=== PATIENT | male | born 1935 ===

== ENCOUNTER 2018-03-31 21:14 | Inpatient (IN) | payer MEDICARE ==
[2018-04-01] MEDS ORDERED: IPRATROPIUM-ALBUTEROL 3 ML NEB INHALATION PRN (01:04)
[2018-04-01 04:03] LABS: Appearance,Urine Clear (Clear); Bilirubin,Urine Negative (Negative); Blood,Urine Small (Negative); Color,Urine Yellow; Glucose,Urine (UA) Negative (Negative); Ketones,Urine Negative (Negative); Leukocyte Esterase,Urine Negative (Negative); Nitrite,Urine Negative (Negative); Protein,Urine Trace (Negative); RBC,Urine 4 /hpf (0-5); Specific Gravity,Urine 1.035 (1.001-1.035); Urobilinogen,Urine <2.0 mg/dL (<2.0)
[2018-04-01] MEDS: IPRATROPIUM-ALBUTEROL 3 ML NEB INHALATION SCH ×4 (06:45→20:23)
[2018-04-01] MEDS: SYMBICORT 160-4.5 MCG INHALER INHALATION SCH ×2 (06:45→20:24)
[2018-04-01 07:41] LABS: Anisocytosis Slight; Basophils % (A) 0 %; Eosinophils % (A) 0 %; HCT 37.7 % (39.0-53.0); HGB 11.6 gm/dL (13.0-17.5); Hypochromasia Moderate; Lymphocytes # (A) 1.5 k/uL (1.0-4.8); Lymphocytes % (A) 15 %; MCH 27.8 pg (25.0-35.0); MCHC 30.7 g/dL (31.0-37.0); MCV 90.6 fL (80.0-100.0); Mean Platelet Volume 7.4; Monocytes # (A) 0.9 k/uL (0-1.0); Monocytes % (A) 9 %; Neutrophils # (A) 7.3 k/uL (1.3-7.7); Neutrophils % (A) 73 %; Platelet Count 267 k/uL (150-450); RBC 4.17 m/uL (4.30-5.90); RDW 16.4 % (11.5-15.5)
--- NOTE | 2018-04-01 07:48 | XR ---
EXAMINATION TYPE: XR chest 1V DATE OF EXAM: 04/01/2018 COMPARISON: NONE HISTORY: Pneumonia. Shortness of breath. TECHNIQUE: Single frontal view of the chest is obtained. FINDINGS: Rounded masslike consolidation within the right lower lung is seen with right minor fissur e retracted inferiorly. The patient's lung apices are obscured by the patient's chin and cannot be evaluated. Small layering pleural effusions silhouette the hemidiaphragms obscure the costophrenic angles. Cardia mediastinal s ilhouette is enlarged. There is very mild cephalization. Retrocardiac opacity is also noted. Osseous structures are grossly intact. IMPRESSION: 1. Right lower lobe rounded masslike opacity that could represent pneumonia, confluent edema or pulmo nary mass. Follow-up to resolution. 2. Cardiomegaly, mild pulmonary vascular congestion and pleural effusions are likely on the decompens ated congestive heart failure.
[2018-04-01 08:11] LABS: Calcium 8.6 mg/dL (8.4-10.2); Magnesium 2.1 mg/dL (1.6-2.3); Potassium 4.3 mmol/L (3.5-5.1)
[2018-04-01] MEDS ORDERED: FUROSEMIDE 10 MG/ML 4 ML VIAL IV SCH (09:00)
[2018-04-01] MEDS ORDERED: NON-FORMULARY DRUG (Omeprazole [Omeprazole] 20 MG) PO SCH (09:00)
[2018-04-01] MEDS ORDERED: ACETAMINOPHEN TAB 325 MG TAB PO PRN (09:00)
[2018-04-01] MEDS ORDERED: METOPROLOL TARTRATE 12.5 MG TAB PO SCH (09:00)
[2018-04-01] MEDS: FERROUS SULFATE 325 MG TAB PO SCH ×2 (10:24→18:58)
[2018-04-01] MEDS: DULoxetine HCL 60 MG CAPSULE.DR PO SCH (10:24)
[2018-04-01] MEDS: APIXABAN 2.5 MG TABLET PO SCH ×2 (10:24→20:05)
[2018-04-01] MEDS: ASPIRIN 81 MG PO SCH (10:24)
[2018-04-01] MEDS: buPROPion SR 100 MG TABLET.ER PO SCH ×2 (10:24→20:04)
[2018-04-01] MEDS: predniSONE 5 MG TAB PO SCH (10:25)
[2018-04-01] MEDS: PANTOPRAZOLE 40 MG/10 ML VIAL IVP SCH (10:25)
--- NOTE | 2018-04-01 10:39 | P.CNPUL ---
History of Present Illness Consult date: 04/01/18 Requesting physician: Jono Maldonado Reason for consult: dyspnea, cough Chief complaint: Cough, shortness of breath, phlegm production History of present illness: This is a 82-year-old white male patient that resides at [facility] , who was brought into the emergency department at the [facility] for evaluation of progressive shortness of breath, cough, phlegm production over the course of 3 days. He denied any fever or chills, denied any chest pain. Past medical history is significant for chronic congestive heart failure, COPD, chronic atrial fibrillation on chronic anticoagulation, chronic anemia, aortic valve stenosis, anxiety, peripheral vascular disease, dementia, depression, sleep apnea, GERD, osteoarthritis, chronic kidney disease. CT angios of the chest was obtained, and showed bilateral centrilobular emphysema, consolidation in the posterior basal segment of the left lower lobe, it was a 2.5 cm pleural- based mass in the left lower lobe laterally. Right lower lobe atelectasis, and consolidation, and 5.9 mm pulmonary nodule in the posterior subsubsegment of the right upper lobe. Bilateral bilateral pleural effusions right greater than the left. Lab work completed at [facility] showed WBC of 9.5, hemoglobin is 11.0, platelet count 292, troponin was 0.017, sodium is 143, potassium 3.7, CO2 of 37, BUN 20, creatinine of 1.4, which is well within normal limits, proBNP was elevated at 1674. No fever or chills, patient was started on empiric Avelox no form of azithromycin and Rocephin, IV diuretics Lasix 40 mg every 12 hours, nebulized bronchodilators, and patient was transferred to [facility]. Currently he is seen in the intensive care unit, he is a selective care overflow., Comfortable, denies any fever or chills, denies any chest pain. Afebrile, currently on 3 L per nasal cannula and his pulse ox 97%, hemodynamically stable, he is A. fib on the monitor with a rate of 84. Chest x-ray was completed here in showed a round lower lobe rounded masslike opacity could represent pneumonia, confluent edema or pulmonary mass. Currently megaly, mild pulmonary vessel congestion and pleural effusions. This morning his blood work showed WBC of 10.0, hemoglobin is 11.6, sodium is 141, potassium is 4.3, chloride is 97, CO2 of 37, B1 is 24 creatinine is 1.1. Troponins were negative 1, urinalysis was unremarkable. Review of Systems All systems: negative Constitutional: Denies chills, Denies fever Eyes: denies blurred vision, denies pain Ears, nose, mouth and throat: Denies headache, Denies sore throat Cardiovascular: Denies chest pain, Denies shortness of breath Respiratory: Reports cough with sputum, Reports dyspnea, Denies cough Gastrointestinal: Denies abdominal pain, Denies diarrhea, Denies nausea, Denies vomiting Musculoskeletal: Denies myalgias Integumentary: Denies pruritus, Denies rash Neurological: Denies numbness, Denies weakness Psychiatric: Denies anxiety, Denies depression Endocrine: Denies fatigue, Denies weight change Past Medical History Past Medical History: Atrial Fibrillation, Heart Failure, COPD, GERD/Reflux, Renal Disease, Sleep Apnea/CPAP/BIPAP Additional Past Medical History / Comment(s): emphysema, anemia, nonrheumatic aortic stenosis, neuropathy, PVD, History of Any Multi-Drug Resistant Organisms: None Reported Smoking Status: Unknown if ever smoked Medications and Allergies Home Medications Medication Instructions Recorded Confirmed Type ALPRAZolam [Xanax] 0.25 mg PO TID 04/01/18 04/01/18 History Acetaminophen Tab [Tylenol] 650 mg PO Q6HR PRN 04/01/18 04/01/18 History Albuterol Nebulized [Ventolin 3 ml INHALATION RT-QID 04/01/18 04/01/18 History Nebulized] Apixaban [Eliquis] 2.5 mg PO BID 04/01/18 04/01/18 History Aspirin [Adult Low Dose Aspirin EC] 81 mg PO DAILY 04/01/18 04/01/18 History Bisacodyl [Dulcolax] 5 mg PO DAILY 04/01/18 04/01/18 History Bisacodyl [Dulcolax] 10 mg RECTAL DAILY PRN 04/01/18 04/01/18 History Bumetanide [BUMEX] 2 mg PO BID 04/01/18 04/01/18 History Cetirizine HCl [Zyrtec] 10 mg PO DAILY 04/01/18 04/01/18 History DULoxetine HCL [Cymbalta] 60 mg PO DAILY 04/01/18 04/01/18 History Ferrous Sulfate [Feosol] 325 mg PO BID 04/01/18 04/01/18 History Fluticasone Nasal [place] [Flonase 1 spray EA NOSTRIL DAILY 04/01/18 04/01/18 History Nasal [place]] Metoprolol Tartrate [Lopressor] 12.5 mg PO BID 04/01/18 04/01/18 History Nystatin 100,000 unit PO DAILY 04/01/18 04/01/18 History Omeprazole 20 mg PO DAILY 04/01/18 04/01/18 History Potassium Chloride ER [K-Dur 20] 20 meq PO BID 04/01/18 04/01/18 History Psyllium Husk (with Sugar) 3.4 gram PO DAILY 04/01/18 04/01/18 History [Metamucil Powder] Saliva Stimulant Agents Comb.3 1 spray MUCOUS MEM DAILY 04/01/18 04/01/18 History [Biotene Moisturizing Mouth] Sennosides-Docusate Sodium 1 tab PO BID 04/01/18 04/01/18 History [Senokot-S] Spironolactone [Aldactone] 25 mg PO DAILY 04/01/18 04/01/18 History buPROPion HCL [Wellbutrin SR] 100 mg PO BID 04/01/18 04/01/18 History guaiFENesin [guaiFENesin Oral 200 mg PO Q6HR PRN 04/01/18 04/01/18 History Solution] predniSONE 5 mg PO DAILY 04/01/18 04/01/18 History Allergies Allergy/AdvReac Type Severity Reaction Status Date / Time Bzertrg-Csm-Ivn Reductase AdvReac Unknown Verified 04/01/18 08:11 Inhibitor Sulfa (Sulfonamide AdvReac Abdominal Verified 04/01/18 08:11 Antibiotics) Pain Physical Exam Vitals: Vital Signs Temp Pulse Resp BP Pulse Ox 04/01/18 07:00 89 17 97 04/01/18 06:59 81 04/01/18 06:46 78 04/01/18 06:00 81 16 120/72 96 04/01/18 05:00 96 18 101/60 95 04/01/18 04:00 97.6 F 88 16 122/78 96 04/01/18 03:00 87 15 112/70 97 04/01/18 02:00 95 14 117/73 96 04/01/18 01:00 95 17 100/71 95 04/01/18 00:00 106 H 14 108/73 96 03/31/18 23:52 98.2 F 89 18 97 Intake and Output 03/31/18 04/01/18 04/01/18 22:59 06:59 14:59 Output Total 890 30 Balance -890 -30 Output: Urine 890 30 Other: Voiding Method Indwelling Catheter Weight 106.2 kg GENERAL EXAM: Alert, pleasant 56-year-old white male patient, comfortable in no apparent distress. On 3 L per nasal cannula, with a pulse ox of 97% HEAD: Normocephalic/atraumatic. EYES: Normal reaction of pupils, equal size. Conjunctiva pink, sclera white. NOSE: Clear with pink turbinates. THROAT: No erythema or exudates. NECK: No masses, no JVD, no thyroid enlargement, no adenopathy. CHEST: No chest wall deformity. Symmetrical expansion. LUNGS: Diminished in the right lower lobe, no rhonchi no wheezes noted. CVS: Regular rate and rhythm, normal S1 and S2, no gallops, no murmurs, no rubs ABDOMEN: Soft, nontender. No hepatosplenomegaly, normal bowel sounds, no guarding or rigidity. EXTREMITIES: No clubbing, no edema, no cyanosis, 2+ pulses and upper and lower extremities. MUSCULOSKELETAL: Muscle strength and tone normal. SPINE: No scoliosis or deformity SKIN: No rashes CENTRAL NERVOUS SYSTEM: Alert and oriented -2. No focal deficits, tone is normal in all 4 extremities. PSYCHIATRIC: Alert and oriented -2. Appropriate affect. Intact judgment and insight. Results - Laboratory Findings CBC and BMP: 04/01/18 07:16 04/01/18 07:16 Abnormal lab findings: Abnormal Labs 04/01/18 04/01/18 04/01/18 03:15 07:16 07:16 RBC 4.17 L Hgb 11.6 L Hct 37.7 L MCHC 30.7 L RDW 16.4 H Chloride 97 L Carbon Dioxide 37 H BUN 24 H Glucose 114 H Urine Protein Trace H Urine Blood Small H - Diagnostic Findings Chest x-ray: report reviewed, image reviewed CT scan - chest: report reviewed Assessment and Plan Plan: Assessment: #1. Acute hypoxic respiratory failure related to acute exacerbation of congestive heart failure, unspecified, his LV function is unknown at this time, echo is pending. #2. Right lower lobe mass/consolidation, consolidation in the left lower lobe, subcentimeter peritracheal lymph nodes, precardinal notable mass measuring 2 x 2 x 1.5 cm, cannot rule out underlying pneumonia, he will be covered with empiric antibiotics. Patient will need follow-up CT at a later date #3. Chronic atrial fibrillation, on chronic anticoagulation #4. History of congestive heart failure #5. History of COPD #6. Dementia #7. Aortic valve stenosis #8. Dementia #9. Osteoarthritis #10. Gait dysfunction #11. Chronic kidney disease Plan: We'll continue the IV diuretics, will restart his Eliquis, continue current antibiotic coverage, nebulized bronchodilators. We'll obtain 2-D echocardiogram , repeat her proBNP. He will need a follow-up CAT scan of the chest at a later date. For now patient is hemodynamically stable, remains afebrile. In no acute distress. Patient is selective phone for patient. No chest pain. Code status is DO NOT RESUSCITATE I performed a history & physical examination of the patient and discussed their management with my nurse practitioner, Keke Gray. I reviewed the nurse practitioner's note and agree with the documented findings and plan of care. Lung sounds are diminished right lower lobe. The findings and the impression was discussed with the patient. I attest to the documentation by the nurse practitioner. Time with Patient: Greater than 30
[2018-04-01] MEDS: AZITHROMYCIN 500 MG in SODIUM CHLORIDE 0.9% 250 ML IVPB SCH (11:18)
--- NOTE | 2018-04-01 12:00 | ECHOF ---
Referral Reason:Assess LV function MEASUREMENTS -------- HEIGHT: 182.9 cm WEIGHT: 105.7 kg BP: 120/72 RVIDd: 3.8 cm (< 3.3) IVSd: 1.3 cm (0.6 - 1.1) LVIDd: 4.1 cm (3.9 - 5.3) LVPWd: 1.4 cm (0.6 - 1.1) IVSs: 1.8 cm LVIDs: 2.4 cm LVPWs: 1.8 cm LA Diam: 3.4 cm (2.7 - 3.8) LAESV Index (A-L): 44.26 ml/m Ao Diam: 3.5 cm (2.0 - 3.7) AV Cusp: 1.5 cm (1.5 - 2.6) EPSS: 1.5 cm MV E Adán: 1.13 m/s MV DecT: 148 ms MV A Adán: 0.30 m/s MV E/A Ratio: 3.73 AV maxP.09 mmHg AV meanP.51 mmHg RAP: 5.00 mmHg RVSP: 41.51 mmHg MV EF SLOPE: 90.98 mm/s (70 - 150) MV EXCURSION: 1.04 cm (> 18.000) FINDINGS -------- Atrial fibrillation. This was a technically difficult study with suboptimal views. The left ventricular size is normal. There is mild concentric left ventricular hypertrophy. Overa ll left ventricular systolic function is normal with, an EF between 60 - 65 %. The right ventricle is mild to moderately enlarged. LA is severely dilated >40 ml/m2 The right atrium is normal in size. 3 ml of Lumason was utilized for enhancement of images. There is moderate aortic valve sclerosis. There is mild aortic stenosis present. Peak/mean gradie nt across the Aortic Valve is 32.09mmHg / 16.51mmHg. The mitral valve leaflets are mildly thickened. Mild mitral annular calcification present. Mild tricuspid regurgitation present. There is moderate pulmonary hypertension. The right ventric ular systolic pressure, as measured by Doppler, is 41.51mmHg. The pulmonic valve was not well visualized. The aortic root size is normal. Normal inferior vena cava with normal inspiratory collapse consistent with estimated right atrial pre ssure of 5 mmHg. The inferior vena cava is mildly dilated. There is no pericardial effusion. CONCLUSIONS -------- 1. Atrial fibrillation. 2. This was a technically difficult study with suboptimal views. 3. The left ventricular size is normal. 4. There is mild concentric left ventricular hypertrophy. 5. Overall left ventricular systolic function is normal with, an EF between 60 - 65 %. 6. The right ventricle is mild to moderately enlarged. 7. LA is severely dilated >40 ml/m2 8. The right atrium is normal in size. 9. 3 ml of Lumason was utilized for enhancement of images. 10. There is moderate aortic valve sclerosis. 11. There is mild aortic stenosis present. 12. Peak/mean gradient across the Aortic Valve is 32.09mmHg / 16.51mmHg. 13. The mitral valve leaflets are mildly thickened. 14. Mild mitral annular calcification present. 15. Mild tricuspid regurgitation present. 16. There is moderate pulmonary hypertension. 17. The right ventricular systolic pressure, as measured by Doppler, is 41.51mmHg. 18. The pulmonic valve was not well visualized. 19. The aortic root size is normal. 20. Normal inferior vena cava with normal inspiratory collapse consistent with estimated right atrial pressure of 5 mmHg. 21. The inferior vena cava is mildly dilated. 22. There is no pericardial effusion. [employer]PL[employer] FLIGHT ATTENDANT SUPERVISOR: FADIA Okeefe
--- NOTE | 2018-04-01 14:33 | P.HPIM ---
History of Present Illness 82-year-old pleasant gentleman, resident of [facility] was admitted to [facility] for pneumonia CT angios the chest was opted which showed bilateral centrilobular emphysema and mass like consolidation in the left lower lobe and a 2.5 cm pleural-based mass area. Patient chest x-ray is suspicious for pulmonary edema because of which patient received Lasix. Patient is sitting in the chair is on about 2 L of oxygen now. Echocardiogram is being obtained. Patient is presently on Rocephin IV diuretics and azithromycin was on Avelox. Patient doesn't have any fevers. Does not appear to have had fevers at the the place either. Is complaining of cough without any significant sputum production. Patient is hard of hearing unable to get much of the history from the patient. Review of Systems Other review of systems are negative except those mentioned above. Past Medical History Past Medical History: Atrial Fibrillation, Heart Failure, COPD, GERD/Reflux, Renal Disease, Sleep Apnea/CPAP/BIPAP Additional Past Medical History / Comment(s): emphysema, anemia, nonrheumatic aortic stenosis, neuropathy, PVD, History of Any Multi-Drug Resistant Organisms: None Reported Smoking Status: Unknown if ever smoked Medications and Allergies Home Medications Medication Instructions Recorded Confirmed Type ALPRAZolam [Xanax] 0.25 mg PO TID 04/01/18 04/01/18 History Acetaminophen Tab [Tylenol] 650 mg PO Q6HR PRN 04/01/18 04/01/18 History Albuterol Nebulized [Ventolin 3 ml INHALATION RT-QID 04/01/18 04/01/18 History Nebulized] Apixaban [Eliquis] 2.5 mg PO BID 04/01/18 04/01/18 History Aspirin [Adult Low Dose Aspirin EC] 81 mg PO DAILY 04/01/18 04/01/18 History Bisacodyl [Dulcolax] 5 mg PO DAILY 04/01/18 04/01/18 History Bisacodyl [Dulcolax] 10 mg RECTAL DAILY PRN 04/01/18 04/01/18 History Bumetanide [BUMEX] 2 mg PO BID 04/01/18 04/01/18 History Cetirizine HCl [Zyrtec] 10 mg PO DAILY 04/01/18 04/01/18 History DULoxetine HCL [Cymbalta] 60 mg PO DAILY 04/01/18 04/01/18 History Ferrous Sulfate [Feosol] 325 mg PO BID 04/01/18 04/01/18 History Fluticasone Nasal [place] [Flonase 1 spray EA NOSTRIL DAILY 04/01/18 04/01/18 History Nasal [place]] Metoprolol Tartrate [Lopressor] 12.5 mg PO BID 04/01/18 04/01/18 History Nystatin 100,000 unit PO DAILY 04/01/18 04/01/18 History Omeprazole 20 mg PO DAILY 04/01/18 04/01/18 History Potassium Chloride ER [K-Dur 20] 20 meq PO BID 04/01/18 04/01/18 History Psyllium Husk (with Sugar) 3.4 gram PO DAILY 04/01/18 04/01/18 History [Metamucil Powder] Saliva Stimulant Agents Comb.3 1 spray MUCOUS MEM DAILY 04/01/18 04/01/18 History [Biotene Moisturizing Mouth] Sennosides-Docusate Sodium 1 tab PO BID 04/01/18 04/01/18 History [Senokot-S] Spironolactone [Aldactone] 25 mg PO DAILY 04/01/18 04/01/18 History buPROPion HCL [Wellbutrin SR] 100 mg PO BID 04/01/18 04/01/18 History guaiFENesin [guaiFENesin Oral 200 mg PO Q6HR PRN 04/01/18 04/01/18 History Solution] predniSONE 5 mg PO DAILY 04/01/18 04/01/18 History Allergies Allergy/AdvReac Type Severity Reaction Status Date / Time Qhthxdd-Gmc-Gdx Reductase AdvReac Unknown Verified 04/01/18 08:11 Inhibitor Sulfa (Sulfonamide AdvReac Abdominal Verified 04/01/18 08:11 Antibiotics) Pain Physical Exam Vitals: Vital Signs Temp Pulse Resp BP Pulse Ox 04/01/18 13:00 71 16 106/83 96 04/01/18 12:00 98.0 F 85 14 106/74 98 04/01/18 11:00 83 19 119/71 97 04/01/18 10:58 100 04/01/18 10:49 96 04/01/18 10:00 89 12 118/66 96 04/01/18 09:00 89 20 110/73 96 04/01/18 08:00 98.0 F 83 22 112/72 93 L 04/01/18 07:00 89 17 97 04/01/18 06:59 81 04/01/18 06:46 78 04/01/18 06:00 81 16 120/72 96 04/01/18 05:00 96 18 101/60 95 04/01/18 04:00 97.6 F 88 16 122/78 96 04/01/18 03:00 87 15 112/70 97 04/01/18 02:00 95 14 117/73 96 04/01/18 01:00 95 17 100/71 95 04/01/18 00:00 106 H 14 108/73 96 03/31/18 23:52 98.2 F 89 18 97 Intake and Output 03/31/18 04/01/18 04/01/18 22:59 06:59 14:59 Intake Total 1100 Output Total 890 1080 Balance -890 20 Intake: Intake, IV Titration 300 Amount Azithromycin 500 mg In 200 Sodium Chloride 0.9% 250 ml @ 250 mls/hr IVPB DAILY [facility] Rx#:[id number] cefTRIAXone 1,000 mg In 100 Sodium Chloride 0.9% 50 ml @ 100 mls/hr IVPB Q24HR [facility] Rx#:[id number] Oral 800 Output: Urine 890 1080 Other: Voiding Method Indwelling Catheter Indwelling Catheter Weight 106.2 kg PHYSICAL EXAMINATION: GENERAL: The patient is alert and oriented x3, not in any acute distress. Well developed, well nourished. HEENT: Pupils are round and equally reacting to light. EOMI. No scleral icterus. No conjunctival pallor. Normocephalic, atraumatic. No pharyngeal erythema. No thyromegaly. CARDIOVASCULAR: S1 and S2 present. No murmurs, rubs, or gallops. PULMONARY: Chest is clear to auscultation, no wheezing or crackles. Mildly decreased air entry into bilateral lung taylor. ABDOMEN: Soft, nontender, nondistended, normoactive bowel sounds. No palpable organomegaly. MUSCULOSKELETAL: No joint swelling or deformity. EXTREMITIES: No cyanosis, clubbing, or pedal edema. NEUROLOGICAL: Gross neurological examination did not reveal any focal deficits. SKIN: No rashes. Results CBC & Chem 7: 04/01/18 07:16 04/01/18 07:16 Labs: Abnormal Lab Results - Last 24 Hours (Table) 04/01/18 04/01/18 04/01/18 Range/Units 03:15 07:16 07:16 RBC 4.17 L (4.30-5.90) m/uL Hgb 11.6 L (13.0-17.5) gm/dL Hct 37.7 L (39.0-53.0) % MCHC 30.7 L (31.0-37.0) g/dL RDW 16.4 H (11.5-15.5) % Chloride 97 L (98-107) mmol/L Carbon Dioxide 37 H (22-30) mmol/L BUN 24 H (9-20) mg/dL Glucose 114 H (74-99) mg/dL Urine Protein Trace H (Negative) Urine Blood Small H (Negative) Assessment and Plan Plan: Acute hypoxic respiratory failure secondary to possible chronic diastolic dysfunction with acute exacerbation patient is receiving Lasix -Right lower lobe mass or consolidation for which patient is receiving antibiotics, further mass patient will need repeat follow-ups CT -Chronic atrial fibrillation presently rate controlled on anticoagulation which will be continued -COPD with minimal exacerbation -Aortic stenosis -Osteoarthritis -Hearing problems -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
[2018-04-01] MEDS: METOPROLOL TARTRATE 12.5 MG TAB PO SCH (20:04)
[2018-04-01] MEDS ORDERED: ALPRAZolam 0.25 MG TAB PO STA (22:28)
[2018-04-02 04:53] LABS: Anisocytosis Slight; Basophils # (A) 0.1 k/uL (0-0.2); Basophils % (A) 1 %; Eosinophils # (A) 0.2 k/uL (0-0.7); Eosinophils % (A) 2 %; HGB 11.1 gm/dL (13.0-17.5); Hypochromasia Moderate; Lymphocytes # (A) 2.5 k/uL (1.0-4.8); Lymphocytes % (A) 26 %; MCH 28.9 pg (25.0-35.0); MCHC 31.6 g/dL (31.0-37.0); MCV 91.4 fL (80.0-100.0); Mean Platelet Volume 7.1; Monocytes # (A) 0.9 k/uL (0-1.0); Monocytes % (A) 9 %; Neutrophils # (A) 5.6 k/uL (1.3-7.7); Neutrophils % (A) 58 %; Platelet Count 301 k/uL (150-450); RBC 3.83 m/uL (4.30-5.90); RDW 18.2 % (11.5-15.5); WBC 9.5 k/uL (3.8-10.6)
[2018-04-02 05:16] LABS: Calcium 8.6 mg/dL (8.4-10.2); Magnesium 2.1 mg/dL (1.6-2.3); Potassium 3.5 mmol/L (3.5-5.1)
[2018-04-02] MEDS: SYMBICORT 160-4.5 MCG INHALER INHALATION SCH ×2 (07:38→19:06)
[2018-04-02] MEDS: IPRATROPIUM-ALBUTEROL 3 ML NEB INHALATION SCH ×4 (07:38→19:07)
[2018-04-02] MEDS: FUROSEMIDE 10 MG/ML 4 ML VIAL IV SCH (09:19)
[2018-04-02] MEDS: PANTOPRAZOLE 40 MG/10 ML VIAL IVP SCH (09:19)
[2018-04-02] MEDS: predniSONE 5 MG TAB PO SCH (09:20)
[2018-04-02] MEDS: APIXABAN 2.5 MG TABLET PO SCH ×2 (09:20→20:52)
[2018-04-02] MEDS: buPROPion SR 100 MG TABLET.ER PO SCH ×2 (09:20→20:52)
[2018-04-02] MEDS: FERROUS SULFATE 325 MG TAB PO SCH ×2 (09:20→16:26)
[2018-04-02] MEDS: DULoxetine HCL 60 MG CAPSULE.DR PO SCH (09:20)
[2018-04-02] MEDS: METOPROLOL TARTRATE 12.5 MG TAB PO SCH ×2 (09:20→20:52)
[2018-04-02] MEDS: ASPIRIN 81 MG PO SCH (09:20)
[2018-04-02] MEDS: AZITHROMYCIN 500 MG in SODIUM CHLORIDE 0.9% 250 ML IVPB SCH (09:21)
[2018-04-02 12:11] LABS: Glucose,Whole Blood 92 mg/dL (75-99)
--- NOTE | 2018-04-02 14:01 | P.PN ---
Subjective Progress Note Date: 04/02/18 This is a 82-year-old white male patient that resides at [facility] , who was brought into the emergency department at the [facility] for evaluation of progressive shortness of breath, cough, phlegm production over the course of 3 days. He denied any fever or chills, denied any chest pain. Past medical history is significant for chronic congestive heart failure, COPD, chronic atrial fibrillation on chronic anticoagulation, chronic anemia, aortic valve stenosis, anxiety, peripheral vascular disease, dementia, depression, sleep apnea, GERD, osteoarthritis, chronic kidney disease. CT angios of the chest was obtained, and showed bilateral centrilobular emphysema, consolidation in the posterior basal segment of the left lower lobe, it was a 2.5 cm pleural- based mass in the left lower lobe laterally. Right lower lobe atelectasis, and consolidation, and 5.9 mm pulmonary nodule in the posterior subsubsegment of the right upper lobe. Bilateral bilateral pleural effusions right greater than the left. Lab work completed at [facility] showed WBC of 9.5, hemoglobin is 11.0, platelet count 292, troponin was 0.017, sodium is 143, potassium 3.7, CO2 of 37, BUN 20, creatinine of 1.4, which is well within normal limits, proBNP was elevated at 1674. No fever or chills, patient was started on empiric Avelox no form of azithromycin and Rocephin, IV diuretics Lasix 40 mg every 12 hours, nebulized bronchodilators, and patient was transferred to [facility]. Currently he is seen in the intensive care unit, he is a selective care overflow., Comfortable, denies any fever or chills, denies any chest pain. Afebrile, currently on 3 L per nasal cannula and his pulse ox 97%, hemodynamically stable, he is A. fib on the monitor with a rate of 84. Chest x-ray was completed here in showed a round lower lobe rounded masslike opacity could represent pneumonia, confluent edema or pulmonary mass. Currently megaly, mild pulmonary vessel congestion and pleural effusions. This morning his blood work showed WBC of 10.0, hemoglobin is 11.6, sodium is 141, potassium is 4.3, chloride is 97, CO2 of 37, B1 is 24 creatinine is 1.1. Troponins were negative 1, urinalysis was unremarkable. On today's evaluation of 04/02/2018, Todd is feeling better. The patient is less short of breath. No chest pain. No significant cough sputum production chest tightness or wheezing. Patient remains on a combination of DuoNeb nebulized treatments around the clock, Rocephin and Zithromax as an empiric antibiotic coverage the patient is being diuresed IV Lasix 40 mg on a daily basis. The repeat chest x-ray showed a right lower lobe rounded masslike opacity. There is also confluent edema. There is also cardiomegaly with mild four-vessel congestion. Echocardiogram revealed ejection fraction of 6065%. The patient has severe dilated LA. Moderate aortic sclerosis. Mild aortic stenosis. Moderate pulmonary hypertension. Right ventricle systolic pressure of around 41 mmHg. Her white cell count is not elevated. The patient is making adequate amount of urine output. No complaints otherwise for now. The patient can be moved to telemetry unit.. Objective - Vital Signs Vital signs: Vital Signs Temp 97.8 F 04/02/18 12:00 Pulse 84 04/02/18 12:00 Resp 13 04/02/18 12:00 BP 92/67 04/02/18 12:00 Pulse Ox 98 04/02/18 12:00 Intake & Output 04/01/18 04/02/18 04/02/18 18:59 06:59 18:59 Intake Total 1840 240 340 Output Total 1080 535 840 Balance 760 -295 -500 Weight 104.8 kg Intake: IV 40 .9 kvo 40 Intake, IV Titration 300 300 Amount Azithromycin 500 mg In 200 250 Sodium Chloride 0.9% 250 ml @ 250 mls/hr IVPB DAILY IMMANUEL Rx#:[id number] cefTRIAXone 1,000 mg In 100 50 Sodium Chloride 0.9% 50 ml @ 100 mls/hr IVPB Q24HR IMMANUEL Rx#:[id number] Oral 1540 240 Output: Urine 1080 535 840 Other: Voiding Method Indwelling Catheter Indwelling Catheter Indwelling Catheter - Exam GENERAL EXAM: Alert, pleasant 56-year-old white male patient, comfortable in no apparent distress. On 3 L per nasal cannula, with a pulse ox of 97% HEAD: Normocephalic/atraumatic. EYES: Normal reaction of pupils, equal size. Conjunctiva pink, sclera white. NOSE: Clear with pink turbinates. THROAT: No erythema or exudates. NECK: No masses, no JVD, no thyroid enlargement, no adenopathy. CHEST: No chest wall deformity. Symmetrical expansion. LUNGS: Diminished in the right lower lobe, no rhonchi no wheezes noted. CVS: Regular rate and rhythm, normal S1 and S2, no gallops, no murmurs, no rubs ABDOMEN: Soft, nontender. No hepatosplenomegaly, normal bowel sounds, no guarding or rigidity. EXTREMITIES: No clubbing, no edema, no cyanosis, 2+ pulses and upper and lower extremities. MUSCULOSKELETAL: Muscle strength and tone normal. SPINE: No scoliosis or deformity SKIN: No rashes CENTRAL NERVOUS SYSTEM: Alert and oriented -2. No focal deficits, tone is normal in all 4 extremities. PSYCHIATRIC: Alert and oriented -2. Appropriate affect. Intact judgment and insight. - Labs CBC & Chem 7: 04/02/18 03:57 04/02/18 03:57 Labs: Abnormal Lab Results - Last 24 Hours (Table) 04/02/18 04/02/18 Range/Units 03:57 03:57 RBC 3.83 L (4.30-5.90) m/uL Hgb 11.1 L (13.0-17.5) gm/dL Hct 35.0 L (39.0-53.0) % RDW 18.2 H (11.5-15.5) % Chloride 94 L (98-107) mmol/L Carbon Dioxide 42 H* (22-30) mmol/L BUN 26 H (9-20) mg/dL Assessment and Plan Plan: #1. Acute hypoxic respiratory failure related to acute exacerbation of congestive heart failure, unspecified, his LV function is unknown at this time, echo is showed a mild degree of aortic stenosis with preserved LV function. Possibility of rabies or pneumonia cannot be completely excluded. The chest x- ray is quite abnormal. There is increased opacification especially in the right lower lobe which raises the suspicion for a masslike lesion. We will subject this patient to adequate diuresis and following that we'll repeat the CAT scan of the chest. #2. Right lower lobe mass/consolidation, consolidation in the left lower lobe, subcentimeter peritracheal lymph nodes, precardinal notable mass measuring 2 x 2 x 1.5 cm, cannot rule out underlying pneumonia, he will be covered with empiric antibiotics. Patient will need follow-up CT at a later date #3. Chronic atrial fibrillation, on chronic anticoagulation #4. History of congestive heart failure #5. History of COPD #6. Dementia #7. Aortic valve stenosis, mild #8. Dementia #9. Osteoarthritis #10. Gait dysfunction #11. Chronic kidney disease, renal function is stable. Plan This patient will be kept on the same treatment. He'll be moved to telemetry. Continue antibiotics and diuretics for another 24 hours. Will possibly repeat the CAT scan with the next 24-48 hours to reevaluate the opacities in the lung bases especially attention to the right lower lobe mass/lesion. We'll continue to follow.
[2018-04-02 17:15] LABS: Glucose,Whole Blood 125 mg/dL (75-99)
[2018-04-02] MEDS: SENNOSIDES 8.6 MG TAB PO SCH (20:52)
[2018-04-03] MEDS: FERROUS SULFATE 325 MG TAB PO SCH ×2 (06:33→17:22)
[2018-04-03] MEDS: PANTOPRAZOLE 40 MG TABLET PO SCH (06:33)
[2018-04-03 07:22] LABS: Basophils % (A) 0 %; Eosinophils # (A) 0.2 k/uL (0-0.7); Eosinophils % (A) 2 %; HCT 36.8 % (39.0-53.0); HGB 11.6 gm/dL (13.0-17.5); Hypochromasia Moderate; Lymphocytes % (A) 22 %; MCH 28.1 pg (25.0-35.0); MCHC 31.5 g/dL (31.0-37.0); MCV 89.2 fL (80.0-100.0); Mean Platelet Volume 7.3; Monocytes % (A) 11 %; Neutrophils # (A) 5.6 k/uL (1.3-7.7); Neutrophils % (A) 62 %; Platelet Count 285 k/uL (150-450); RBC 4.12 m/uL (4.30-5.90); RDW 15.7 % (11.5-15.5); WBC 9.1 k/uL (3.8-10.6)
[2018-04-03 07:36] LABS: Calcium 8.8 mg/dL (8.4-10.2); Potassium 3.3 mmol/L (3.5-5.1)
[2018-04-03] MEDS: SYMBICORT 160-4.5 MCG INHALER INHALATION SCH ×2 (07:55→19:31)
[2018-04-03] MEDS: IPRATROPIUM-ALBUTEROL 3 ML NEB INHALATION SCH ×4 (07:55→19:30)
[2018-04-03] MEDS ORDERED: RX INFO: IV CONTRAST WAS GIVEN 1 EACH MISC MISCELLANE PRN (08:41)
[2018-04-03] MEDS: APIXABAN 2.5 MG TABLET PO SCH ×2 (09:15→20:33)
[2018-04-03] MEDS: FUROSEMIDE 10 MG/ML 4 ML VIAL IV SCH (09:16)
[2018-04-03] MEDS: DULoxetine HCL 60 MG CAPSULE.DR PO SCH (09:16)
[2018-04-03] MEDS: ASPIRIN 81 MG PO SCH (09:16)
--- NOTE | 2018-04-03 09:32 | XR ---
EXAMINATION TYPE: XR chest 2V DATE OF EXAM: 04/03/2018 COMPARISON: 04/01/2018 INDICATION: Follow-up previous abnormal chest, pneumonia TECHNIQUE: Frontal and lateral views of the chest are obtained. FINDINGS: The heart size is enlarged. The pulmonary vasculature is prominent. Bibasilar infiltrates are present. Small bilateral pleural effusions are present, slightly greater on the right. The consolidation at the right lower lobe remains present. Underlying mass remains within the differential. This should be followed to clearing. IMPRESSION: 1. Stable right lower lobe consolidation or mass. Continued follow-up to clearing is recommended. 2. Small bilateral pleural effusions. 3. Cardiomegaly
[2018-04-03] MEDS ORDERED: Potassium Replacement Protocol 1 EACH MISC MISCELLANE PRN (10:17)
--- NOTE | 2018-04-03 11:21 | CT ---
EXAMINATION TYPE: CT chest w con DATE OF EXAM: 04/03/2018 COMPARISON: Chest x-ray 04/03/2018 HISTORY: History of chest mass CT DLP: 521.7 mGycm, Automated exposure control for dose reduction was used. CONTRAST: Performed injected with 100 ml mL of Isovue 300. TECHNIQUE: Axial images were obtained at 5 mm thick sections. Reconstructed images are reviewed on [employer] computer in the coronal plane. FINDINGS: Portion of the thyroid visualized is normal. No suspicious lung nodules or focal infiltrates are present. Minimal right pleural effusion is presen t. Consolidation are present within the right lung base right middle lobe and right lower lobe. Mass and pneumonia could be considered. This would measure 5.7 x 6.7 cm in the right lower lobe and 5.7 x 5.1 cm in the right middle lobe. Small left pleural effusion is also present. Within the lingula ther e is a small peripheral density measuring 2.8 x 1.5 cm. Infiltrate and mass are within the differenti al. Emphysematous changes are within the lung taylor. No enlarged mediastinal or hilar adenopathy is evident. The ascending aorta diameter at the level o f the main pulmonary artery is 3.7 cm. The main pulmonary artery diameter at the bifurcation is 2.[address] sections are obtained through the upper abdomen. Abdomen is essentially unremarkable. IMPRESSIONS: 1. Bibasilar lung base densities within the lingula, right middle lobe and right lower lobe. Differen tial diagnosis could include pneumonia, mass, atelectasis. 2. Small right and lesser left pleural effusions. 3. COPD
[2018-04-03] MEDS: METOPROLOL TARTRATE 12.5 MG TAB PO SCH ×2 (12:20→20:33)
[2018-04-03] MEDS: DOCUSATE 100 MG CAP PO PRN (12:43)
[2018-04-03] MEDS: buPROPion SR 100 MG TABLET.ER PO SCH ×2 (12:44→20:33)
[2018-04-03] MEDS: POTASSIUM BICARBONATE/CIT AC 20 MEQ TABLET.EFF NG-TUBE SCH ×2 (12:45→13:35)
--- NOTE | 2018-04-03 15:23 | P.PN ---
Subjective Progress Note Date: 04/03/18 This is a 82-year-old white male patient that resides at [facility] , who was brought into the emergency department at the [facility] for evaluation of progressive shortness of breath, cough, phlegm production over the course of 3 days. He denied any fever or chills, denied any chest pain. Past medical history is significant for chronic congestive heart failure, COPD, chronic atrial fibrillation on chronic anticoagulation, chronic anemia, aortic valve stenosis, anxiety, peripheral vascular disease, dementia, depression, sleep apnea, GERD, osteoarthritis, chronic kidney disease. CT angios of the chest was obtained, and showed bilateral centrilobular emphysema, consolidation in the posterior basal segment of the left lower lobe, it was a 2.5 cm pleural- based mass in the left lower lobe laterally. Right lower lobe atelectasis, and consolidation, and 5.9 mm pulmonary nodule in the posterior subsubsegment of the right upper lobe. Bilateral bilateral pleural effusions right greater than the left. Lab work completed at [facility] showed WBC of 9.5, hemoglobin is 11.0, platelet count 292, troponin was 0.017, sodium is 143, potassium 3.7, CO2 of 37, BUN 20, creatinine of 1.4, which is well within normal limits, proBNP was elevated at 1674. No fever or chills, patient was started on empiric Avelox no form of azithromycin and Rocephin, IV diuretics Lasix 40 mg every 12 hours, nebulized bronchodilators, and patient was transferred to [facility]. Currently he is seen in the intensive care unit, he is a selective care overflow., Comfortable, denies any fever or chills, denies any chest pain. Afebrile, currently on 3 L per nasal cannula and his pulse ox 97%, hemodynamically stable, he is A. fib on the monitor with a rate of 84. Chest x-ray was completed here in showed a round lower lobe rounded masslike opacity could represent pneumonia, confluent edema or pulmonary mass. Currently megaly, mild pulmonary vessel congestion and pleural effusions. This morning his blood work showed WBC of 10.0, hemoglobin is 11.6, sodium is 141, potassium is 4.3, chloride is 97, CO2 of 37, B1 is 24 creatinine is 1.1. Troponins were negative 1, urinalysis was unremarkable. On today's evaluation of 04/02/2018, Todd is feeling better. The patient is less short of breath. No chest pain. No significant cough sputum production chest tightness or wheezing. Patient remains on a combination of DuoNeb nebulized treatments around the clock, Rocephin and Zithromax as an empiric antibiotic coverage the patient is being diuresed IV Lasix 40 mg on a daily basis. The repeat chest x-ray showed a right lower lobe rounded masslike opacity. There is also confluent edema. There is also cardiomegaly with mild four-vessel congestion. Echocardiogram revealed ejection fraction of 6065%. The patient has severe dilated LA. Moderate aortic sclerosis. Mild aortic stenosis. Moderate pulmonary hypertension. Right ventricle systolic pressure of around 41 mmHg. Her white cell count is not elevated. The patient is making adequate amount of urine output. No complaints otherwise for now. The patient can be moved to telemetry unit.. On 04/03/2018, I am seeing this patient for a follow-up regarding shortness of breath and acute hypoxic respiratory failure. The patient responded to antibiotics and diuretics. However he continued to have abnormalities in the lung bases bilaterally. Based on that, a CAT scan of the chest was done and showed COPD and small bilateral pleural effusion right more than left. There is bibasilar lung densities within the lingula in the right middle lobe and right lower lobe. This could be potentially atelectatic lung segments although possibility of malignancy cannot be completely ruled out. The largest area of opacity is around 5.7 x 6.7 cm in size in the right lower lobe and another 5.7 x 5.1 cm opacity in the right middle lobe. There are also small peripheral densities measuring 2.8 x 1.5 cm in size. Infiltrating mass is within the differential diagnosis. Nevertheless, the patient is feeling well. No hemoptysis. No pleurisy. No chest pain. No weight loss. No other constitutional symptoms for now. He remains on a combination of Rocephin and Zithromax. He remains on long-term articulation with a Eliquis. The patient is also taken off IV Lasix today. Objective - Vital Signs Vital signs: Vital Signs Temp 97.9 F 04/03/18 13:00 Pulse 90 04/03/18 13:00 Resp 20 04/03/18 13:00 BP 124/95 04/03/18 13:00 Pulse Ox 92 L 04/03/18 13:00 Intake & Output 04/02/18 04/03/18 04/03/18 18:59 06:59 18:59 Intake Total 445 80 800 Output Total 0212 306 6090 Balance -448 -919 -539 Intake: IV 145 80 .9 kvo 145 80 Intake, IV Titration 300 300 Amount Azithromycin 500 mg In 250 250 Sodium Chloride 0.9% 250 ml @ 250 mls/hr IVPB DAILY IMMANUEL Rx#:[id number] cefTRIAXone 1,000 mg In 50 50 Sodium Chloride 0.9% 50 ml @ 100 mls/hr IVPB Q24HR IMMANUEL Rx#:[id number] Oral 500 Output: Urine 8515 878 5914 Other: Voiding Method Indwelling Catheter Indwelling Catheter Indwelling Catheter # Bowel Movements 2 - Exam GENERAL EXAM: Alert, pleasant 56-year-old white male patient, comfortable in no apparent distress. On 3 L per nasal cannula, with a pulse ox of 97% HEAD: Normocephalic/atraumatic. EYES: Normal reaction of pupils, equal size. Conjunctiva pink, sclera white. NOSE: Clear with pink turbinates. THROAT: No erythema or exudates. NECK: No masses, no JVD, no thyroid enlargement, no adenopathy. CHEST: No chest wall deformity. Symmetrical expansion. LUNGS: Diminished in the right lower lobe, no rhonchi no wheezes noted. CVS: Regular rate and rhythm, normal S1 and S2, no gallops, no murmurs, no rubs ABDOMEN: Soft, nontender. No hepatosplenomegaly, normal bowel sounds, no guarding or rigidity. EXTREMITIES: No clubbing, no edema, no cyanosis, 2+ pulses and upper and lower extremities. MUSCULOSKELETAL: Muscle strength and tone normal. SPINE: No scoliosis or deformity SKIN: No rashes CENTRAL NERVOUS SYSTEM: Alert and oriented -2. No focal deficits, tone is normal in all 4 extremities. PSYCHIATRIC: Alert and oriented -2. Appropriate affect. Intact judgment and insight. - Labs CBC & Chem 7: 04/03/18 07:07 04/03/18 07:07 Labs: Abnormal Lab Results - Last 24 Hours (Table) 04/02/18 04/03/18 04/03/18 Range/Units 17:03 07:07 07:07 RBC 4.12 L (4.30-5.90) m/uL Hgb 11.6 L (13.0-17.5) gm/dL Hct 36.8 L (39.0-53.0) % RDW 15.7 H (11.5-15.5) % Potassium 3.3 L (3.5-5.1) mmol/L Chloride 93 L (98-107) mmol/L Carbon Dioxide 40 H (22-30) mmol/L BUN 23 H (9-20) mg/dL Glucose 100 H (74-99) mg/dL POC Glucose (mg/dL) 125 H (75-99) mg/dL Assessment and Plan Plan: #1. Acute hypoxic respiratory failure related to acute exacerbation of congestive heart failure, unspecified, his LV function is unknown at this time, echo is showed a mild degree of aortic stenosis with preserved LV function. Possibility of rabies or pneumonia cannot be completely excluded. The chest x- ray is quite abnormal. There is increased opacification especially in the right lower lobe which raises the suspicion for a masslike lesion. The CAT scan was repeated and there is still concern for malignancy versus round atelectasis. The patient clinically stable. The patient is improving and accommodation antibiotics and diuretics. #2. Right lateral pulmonary opacities, largest measuring around 6 cm in size in the right lower lobe another smaller one in the right middle lobe and there is another no other lesions in the left lung. Possibility of malignancy cannot be completely excluded. I reviewed the CAT scan. These areas could be also areas of round atelectasis. #3. Chronic atrial fibrillation, on chronic anticoagulation, rate controlled #4. History of congestive heart failure #5. History of COPD #6. Dementia #7. Aortic valve stenosis, mild #8. Dementia #9. Osteoarthritis #10. Gait dysfunction #11. Chronic kidney disease, renal function is stable. Plan This patient will be kept on the same treatment. He'll be moved to telemetry. All OF THE CHEST WAS REVIEWED. RESULTS WERE NOTED. WE WILL LIKELY NEED A BRONCHOSCOPY AT A LATER STAGE. FOR NOW WOULD OPTIMIZE HIS PULMONARY STATUS AND WILL CONTINUE TO FOLLOW. HE'LL BE MOVED OUT OF THE INTENSIVE CARE UNIT.
[2018-04-03] MEDS: predniSONE 5 MG TAB PO SCH (16:09)
[2018-04-03] MEDS: SENNOSIDES 8.6 MG TAB PO SCH (20:34)
--- NOTE | 2018-04-03 22:21 | P.PN ---
Subjective Progress Note Date: 04/02/18 Principal diagnosis: Pneumonia 82-year-old pleasant gentleman, resident of [facility] was admitted to [facility] for pneumonia CT angios the chest was opted which showed bilateral centrilobular emphysema and mass like consolidation in the left lower lobe and a 2.5 cm pleural-based mass area. Patient chest x-ray is suspicious for pulmonary edema because of which patient received Lasix. Patient is sitting in the chair is on about 2 L of oxygen now. Echocardiogram is being obtained. Patient is presently on Rocephin IV diuretics and azithromycin was on Avelox. Patient doesn't have any fevers. Does not appear to have had fevers at the the place either. Is complaining of cough without any significant sputum production. Patient is hard of hearing unable to get much of the history from the patient. 04/02/2018 Patient denied any complains of chest pain. Shortness of breath is getting better. Patient is being continued on antibiotics in the form of ceftriaxone and azithromycin. Continue with IV diuresis and breathing treatments. Echocardiogram showed ejection fraction 60-65%. Severely dilated left atrium. And moderate aortic sclerosis and mild aortic stenosis. Moderate pulmonary hypertension. Patient is currently is being monitored in the ICU. No fever no chills. No other acute overnight issues. Current medications reviewed.. Objective - Vital Signs Vital signs: Vital Signs Temp 97.7 F 04/02/18 16:00 Pulse 81 04/02/18 16:00 Resp 15 04/02/18 16:00 BP 85/63 04/02/18 16:00 Pulse Ox 96 04/02/18 16:00 Intake & Output 04/01/18 04/02/18 04/02/18 18:59 06:59 18:59 Intake Total 1840 240 395 Output Total 7897 153 3820 Balance 760 -295 -800 Weight 104.8 kg Intake: IV 95 .9 kvo 95 Intake, IV Titration 300 300 Amount Azithromycin 500 mg In 200 250 Sodium Chloride 0.9% 250 ml @ 250 mls/hr IVPB DAILY I[facility]UEL Rx#:[id number] cefTRIAXone 1,000 mg In 100 50 Sodium Chloride 0.9% 50 ml @ 100 mls/hr IVPB Q24HR IMMANUEL Rx#:[id number] Oral 1540 240 Output: Urine 5862 734 7209 Other: Voiding Method Indwelling Catheter Indwelling Catheter Indwelling Catheter - Exam GENERAL: The patient is alert and oriented x3, not in any acute distress. Well developed, well nourished. HEENT: Pupils are round and equally reacting to light. EOMI. No scleral icterus. No conjunctival pallor. Normocephalic, atraumatic. No pharyngeal erythema. No thyromegaly. CARDIOVASCULAR: S1 and S2 present. No murmurs, rubs, or gallops. PULMONARY: Chest is clear to auscultation, no wheezing or crackles. Mildly decreased air entry into bilateral lung taylor. ABDOMEN: Soft, nontender, nondistended, normoactive bowel sounds. No palpable organomegaly. MUSCULOSKELETAL: No joint swelling or deformity. EXTREMITIES: No cyanosis, clubbing, or pedal edema. NEUROLOGICAL: Gross neurological examination did not reveal any focal deficits. - Labs CBC & Chem 7: 04/03/18 07:07 04/03/18 15:30 Labs: Abnormal Lab Results - Last 24 Hours (Table) 04/02/18 04/02/18 Range/Units 03:57 03:57 RBC 3.83 L (4.30-5.90) m/uL Hgb 11.1 L (13.0-17.5) gm/dL Hct 35.0 L (39.0-53.0) % RDW 18.2 H (11.5-15.5) % Chloride 94 L (98-107) mmol/L Carbon Dioxide 42 H* (22-30) mmol/L BUN 26 H (9-20) mg/dL Assessment and Plan Assessment: Acute hypoxic respiratory failure secondary to chronic diastolic dysfunction with acute exacerbation . 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 Continue the home medications including oral anticoagulation. Follow up closely and further recommendations based on the clinical course. Monitor renal function. Pulmonary is on board. Time with Patient: Greater than 30
[2018-04-04 05:43] LABS: Basophils % (A) 0 %; Eosinophils # (A) 0.1 k/uL (0-0.7); Eosinophils % (A) 2 %; HCT 35.7 % (39.0-53.0); Hypochromasia Slight; Lymphocytes % (A) 21 %; MCH 27.3 pg (25.0-35.0); MCHC 30.9 g/dL (31.0-37.0); MCV 88.4 fL (80.0-100.0); Mean Platelet Volume 7.3; Monocytes # (A) 1.1 k/uL (0-1.0); Monocytes % (A) 11 %; Neutrophils # (A) 5.9 k/uL (1.3-7.7); Neutrophils % (A) 63 %; Platelet Count 311 k/uL (150-450); RBC 4.04 m/uL (4.30-5.90); RDW 15.6 % (11.5-15.5); WBC 9.4 k/uL (3.8-10.6)
[2018-04-04 05:51] LABS: Calcium 8.7 mg/dL (8.4-10.2); Potassium 3.2 mmol/L (3.5-5.1)
[2018-04-04] MEDS: SYMBICORT 160-4.5 MCG INHALER INHALATION SCH ×2 (07:46→20:14)
[2018-04-04] MEDS: IPRATROPIUM-ALBUTEROL 3 ML NEB INHALATION SCH ×4 (07:46→20:14)
[2018-04-04] MEDS: METOPROLOL TARTRATE 12.5 MG TAB PO SCH ×2 (09:57→22:28)
[2018-04-04] MEDS: DULoxetine HCL 60 MG CAPSULE.DR PO SCH (09:57)
[2018-04-04] MEDS: APIXABAN 2.5 MG TABLET PO SCH ×2 (09:57→22:28)
[2018-04-04] MEDS: ASPIRIN 81 MG PO SCH (09:57)
[2018-04-04] MEDS: PANTOPRAZOLE 40 MG TABLET PO SCH (09:57)
[2018-04-04] MEDS: FERROUS SULFATE 325 MG TAB PO SCH ×2 (09:57→18:26)
[2018-04-04] MEDS: predniSONE 5 MG TAB PO SCH (09:58)
[2018-04-04] MEDS: buPROPion SR 100 MG TABLET.ER PO SCH ×2 (09:58→22:28)
[2018-04-04] MEDS: AZITHROMYCIN 500 MG TAB PO SCH (09:58)
[2018-04-04] MEDS: POTASSIUM CHLORIDE ER 20 MEQ TAB.ER PO SCH ×2 (10:58→13:01)
--- NOTE | 2018-04-04 13:54 | P.PN ---
Subjective Progress Note Date: 04/04/18 This is a 82-year-old white male patient that resides at [facility] , who was brought into the emergency department at the [facility] for evaluation of progressive shortness of breath, cough, phlegm production over the course of 3 days. He denied any fever or chills, denied any chest pain. Past medical history is significant for chronic congestive heart failure, COPD, chronic atrial fibrillation on chronic anticoagulation, chronic anemia, aortic valve stenosis, anxiety, peripheral vascular disease, dementia, depression, sleep apnea, GERD, osteoarthritis, chronic kidney disease. CT angios of the chest was obtained, and showed bilateral centrilobular emphysema, consolidation in the posterior basal segment of the left lower lobe, it was a 2.5 cm pleural- based mass in the left lower lobe laterally. Right lower lobe atelectasis, and consolidation, and 5.9 mm pulmonary nodule in the posterior subsubsegment of the right upper lobe. Bilateral bilateral pleural effusions right greater than the left. Lab work completed at [facility] showed WBC of 9.5, hemoglobin is 11.0, platelet count 292, troponin was 0.017, sodium is 143, potassium 3.7, CO2 of 37, BUN 20, creatinine of 1.4, which is well within normal limits, proBNP was elevated at 1674. No fever or chills, patient was started on empiric Avelox no form of azithromycin and Rocephin, IV diuretics Lasix 40 mg every 12 hours, nebulized bronchodilators, and patient was transferred to [facility]. Currently he is seen in the intensive care unit, he is a selective care overflow., Comfortable, denies any fever or chills, denies any chest pain. Afebrile, currently on 3 L per nasal cannula and his pulse ox 97%, hemodynamically stable, he is A. fib on the monitor with a rate of 84. Chest x-ray was completed here in showed a round lower lobe rounded masslike opacity could represent pneumonia, confluent edema or pulmonary mass. Currently megaly, mild pulmonary vessel congestion and pleural effusions. This morning his blood work showed WBC of 10.0, hemoglobin is 11.6, sodium is 141, potassium is 4.3, chloride is 97, CO2 of 37, B1 is 24 creatinine is 1.1. Troponins were negative 1, urinalysis was unremarkable. On today's evaluation of 04/02/2018, Todd is feeling better. The patient is less short of breath. No chest pain. No significant cough sputum production chest tightness or wheezing. Patient remains on a combination of DuoNeb nebulized treatments around the clock, Rocephin and Zithromax as an empiric antibiotic coverage the patient is being diuresed IV Lasix 40 mg on a daily basis. The repeat chest x-ray showed a right lower lobe rounded masslike opacity. There is also confluent edema. There is also cardiomegaly with mild four-vessel congestion. Echocardiogram revealed ejection fraction of 6065%. The patient has severe dilated LA. Moderate aortic sclerosis. Mild aortic stenosis. Moderate pulmonary hypertension. Right ventricle systolic pressure of around 41 mmHg. Her white cell count is not elevated. The patient is making adequate amount of urine output. No complaints otherwise for now. The patient can be moved to telemetry unit.. On 04/03/2018, I am seeing this patient for a follow-up regarding shortness of breath and acute hypoxic respiratory failure. The patient responded to antibiotics and diuretics. However he continued to have abnormalities in the lung bases bilaterally. Based on that, a CAT scan of the chest was done and showed COPD and small bilateral pleural effusion right more than left. There is bibasilar lung densities within the lingula in the right middle lobe and right lower lobe. This could be potentially atelectatic lung segments although possibility of malignancy cannot be completely ruled out. The largest area of opacity is around 5.7 x 6.7 cm in size in the right lower lobe and another 5.7 x 5.1 cm opacity in the right middle lobe. There are also small peripheral densities measuring 2.8 x 1.5 cm in size. Infiltrating mass is within the differential diagnosis. Nevertheless, the patient is feeling well. No hemoptysis. No pleurisy. No chest pain. No weight loss. No other constitutional symptoms for now. He remains on a combination of Rocephin and Zithromax. He remains on long-term articulation with a Eliquis. The patient is also taken off IV Lasix today. On 04/04/2018, I'm seeing this patient for a follow-up. Todd is looking better. His that short of breath compared to yesterday. No new finding or any other new complaints. CAT scan of the chest abnormalities were noted. Nevertheless, these are things that we need to follow-up on outpatient basis. The patient may ultimately the biopsy the these abnormalities persist. For the most part, is responding to the current treatment. No nausea. No vomiting. No chest pain. No pleurisy. No hemoptysis. No other complaints otherwise. Objective - Vital Signs Vital signs: Vital Signs Temp 98.1 F 04/04/18 08:00 Pulse 90 04/04/18 10:00 Resp 15 04/04/18 10:00 BP 120/80 04/04/18 10:00 Pulse Ox 95 04/04/18 08:00 Intake & Output 04/03/18 04/04/18 04/04/18 18:59 06:59 18:59 Intake Total 800 875 350 Output Total 1150 1125 200 Balance -350 -250 150 Weight 104.8 kg Intake: Intake, IV Titration 300 Amount Azithromycin 500 mg In 250 Sodium Chloride 0.9% 250 ml @ 250 mls/hr IVPB DAILY [facility] Rx#:[id number] cefTRIAXone 1,000 mg In 50 Sodium Chloride 0.9% 50 ml @ 100 mls/hr IVPB Q24HR [facility] Rx#:[id number] Oral 500 875 350 Output: Urine 1150 1125 200 Other: Voiding Method Indwelling Catheter Indwelling Catheter Indwelling Catheter # Bowel Movements 2 - Exam GENERAL EXAM: Alert, pleasant 56-year-old white male patient, comfortable in no apparent distress. On 3 L per nasal cannula, with a pulse ox of 97% HEAD: Normocephalic/atraumatic. EYES: Normal reaction of pupils, equal size. Conjunctiva pink, sclera white. NOSE: Clear with pink turbinates. THROAT: No erythema or exudates. NECK: No masses, no JVD, no thyroid enlargement, no adenopathy. CHEST: No chest wall deformity. Symmetrical expansion. LUNGS: Diminished in the right lower lobe, no rhonchi no wheezes noted. CVS: Regular rate and rhythm, normal S1 and S2, no gallops, no murmurs, no rubs ABDOMEN: Soft, nontender. No hepatosplenomegaly, normal bowel sounds, no guarding or rigidity. EXTREMITIES: No clubbing, no edema, no cyanosis, 2+ pulses and upper and lower extremities. MUSCULOSKELETAL: Muscle strength and tone normal. SPINE: No scoliosis or deformity SKIN: No rashes CENTRAL NERVOUS SYSTEM: Alert and oriented -2. No focal deficits, tone is normal in all 4 extremities. PSYCHIATRIC: Alert and oriented -2. Appropriate affect. Intact judgment and insight. - Labs CBC & Chem 7: 04/04/18 05:27 04/04/18 05:27 Labs: Abnormal Lab Results - Last 24 Hours (Table) 04/04/18 04/04/18 Range/Units 05:27 05:27 RBC 4.04 L (4.30-5.90) m/uL Hgb 11.0 L (13.0-17.5) gm/dL Hct 35.7 L (39.0-53.0) % MCHC 30.9 L (31.0-37.0) g/dL RDW 15.6 H (11.5-15.5) % Monocytes # 1.1 H (0-1.0) k/uL Potassium 3.2 L (3.5-5.1) mmol/L Chloride 90 L (98-107) mmol/L Carbon Dioxide 39 H (22-30) mmol/L BUN 21 H (9-20) mg/dL Glucose 104 H (74-99) mg/dL Assessment and Plan Plan: #1. Acute hypoxic respiratory failure related to acute exacerbation of congestive heart failure, unspecified, his LV function is unknown at this time, echo is showed a mild degree of aortic stenosis with preserved LV function. Possibility of rabies or pneumonia cannot be completely excluded. The chest x- ray is quite abnormal. There is increased opacification especially in the right lower lobe which raises the suspicion for a masslike lesion. The CAT scan was repeated and there is still concern for malignancy versus round atelectasis. The patient clinically stable. The patient continues to improve. He is agreeable and following up abnormalities on outpatient basis. No other new complaints otherwise for now. #2. Right lateral pulmonary opacities, largest measuring around 6 cm in size in the right lower lobe another smaller one in the right middle lobe and there is another no other lesions in the left lung. Possibility of malignancy cannot be completely excluded. I reviewed the CAT scan. These areas could be also areas of round atelectasis. #3. Chronic atrial fibrillation, on chronic anticoagulation, rate controlled #4. History of congestive heart failure #5. History of COPD #6. Dementia #7. Aortic valve stenosis, mild #8. Dementia #9. Osteoarthritis #10. Gait dysfunction #11. Chronic kidney disease, renal function is stable. Plan The patient continues to improve. Continue antibiotics. Continue monitoring the pulmonary status. Continue long-term anticoagulation. We'll continue to follow make further recommendations as we go. The patient can be transferred to [facility] unit.
[2018-04-04] MEDS: AZITHROMYCIN 500 MG in SODIUM CHLORIDE 0.9% 250 ML IVPB SCH (19:48)
[2018-04-04] MEDS: SENNOSIDES 8.6 MG TAB PO SCH (22:28)
[2018-04-05] MEDS: buPROPion SR 100 MG TABLET.ER PO SCH ×2 (08:15→21:37)
[2018-04-05] MEDS: predniSONE 5 MG TAB PO SCH (08:16)
[2018-04-05] MEDS: AZITHROMYCIN 500 MG TAB PO SCH (08:16)
[2018-04-05] MEDS: SYMBICORT 160-4.5 MCG INHALER INHALATION SCH ×2 (08:29→21:02)
[2018-04-05] MEDS: IPRATROPIUM-ALBUTEROL 3 ML NEB INHALATION SCH ×4 (08:31→21:02)
[2018-04-05] MEDS: FERROUS SULFATE 325 MG TAB PO SCH ×2 (08:46→17:41)
[2018-04-05] MEDS: ASPIRIN 81 MG PO SCH (08:46)
[2018-04-05] MEDS: METOPROLOL TARTRATE 12.5 MG TAB PO SCH ×2 (08:46→21:37)
[2018-04-05] MEDS: PANTOPRAZOLE 40 MG TABLET PO SCH (08:46)
[2018-04-05] MEDS: APIXABAN 2.5 MG TABLET PO SCH ×2 (08:46→21:37)
[2018-04-05] MEDS: DULoxetine HCL 60 MG CAPSULE.DR PO SCH (09:53)
--- NOTE | 2018-04-05 14:42 | P.PN ---
Subjective Progress Note Date: 04/05/18 This is a 82-year-old white male patient that resides at [facility] [place] , who was brought into the emergency department at the [facility] for evaluation of progressive shortness of breath, cough, phlegm production over the course of 3 days. He denied any fever or chills, denied any chest pain. Past medical history is significant for chronic congestive heart failure, COPD, chronic atrial fibrillation on chronic anticoagulation, chronic anemia, aortic valve stenosis, anxiety, peripheral vascular disease, dementia, depression, sleep apnea, GERD, osteoarthritis, chronic kidney disease. CT angios of the chest was obtained, and showed bilateral centrilobular emphysema, consolidation in the posterior basal segment of the left lower lobe, it was a 2.5 cm pleural- based mass in the left lower lobe laterally. Right lower lobe atelectasis, and consolidation, and 5.9 mm pulmonary nodule in the posterior subsubsegment of the right upper lobe. Bilateral bilateral pleural effusions right greater than the left. Lab work completed at [facility] showed WBC of 9.5, hemoglobin is 11.0, platelet count 292, troponin was 0.017, sodium is 143, potassium 3.7, CO2 of 37, BUN 20, creatinine of 1.4, which is well within normal limits, proBNP was elevated at 1674. No fever or chills, patient was started on empiric Avelox no form of azithromycin and Rocephin, IV diuretics Lasix 40 mg every 12 hours, nebulized bronchodilators, and patient was transferred to [facility]. Currently he is seen in the intensive care unit, he is a selective care overflow., Comfortable, denies any fever or chills, denies any chest pain. Afebrile, currently on 3 L per nasal cannula and his pulse ox 97%, hemodynamically stable, he is A. fib on the monitor with a rate of 84. Chest x-ray was completed here in showed a round lower lobe rounded masslike opacity could represent pneumonia, confluent edema or pulmonary mass. Currently megaly, mild pulmonary vessel congestion and pleural effusions. This morning his blood work showed WBC of 10.0, hemoglobin is 11.6, sodium is 141, potassium is 4.3, chloride is 97, CO2 of 37, B1 is 24 creatinine is 1.1. Troponins were negative 1, urinalysis was unremarkable. On today's evaluation of 04/02/2018, Todd is feeling better. The patient is less short of breath. No chest pain. No significant cough sputum production chest tightness or wheezing. Patient remains on a combination of DuoNeb nebulized treatments around the clock, Rocephin and Zithromax as an empiric antibiotic coverage the patient is being diuresed IV Lasix 40 mg on a daily basis. The repeat chest x-ray showed a right lower lobe rounded masslike opacity. There is also confluent edema. There is also cardiomegaly with mild four-vessel congestion. Echocardiogram revealed ejection fraction of 6065%. The patient has severe dilated LA. Moderate aortic sclerosis. Mild aortic stenosis. Moderate pulmonary hypertension. Right ventricle systolic pressure of around 41 mmHg. Her white cell count is not elevated. The patient is making adequate amount of urine output. No complaints otherwise for now. The patient can be moved to telemetry unit.. On 04/03/2018, I am seeing this patient for a follow-up regarding shortness of breath and acute hypoxic respiratory failure. The patient responded to antibiotics and diuretics. However he continued to have abnormalities in the lung bases bilaterally. Based on that, a CAT scan of the chest was done and showed COPD and small bilateral pleural effusion right more than left. There is bibasilar lung densities within the lingula in the right middle lobe and right lower lobe. This could be potentially atelectatic lung segments although possibility of malignancy cannot be completely ruled out. The largest area of opacity is around 5.7 x 6.7 cm in size in the right lower lobe and another 5.7 x 5.1 cm opacity in the right middle lobe. There are also small peripheral densities measuring 2.8 x 1.5 cm in size. Infiltrating mass is within the differential diagnosis. Nevertheless, the patient is feeling well. No hemoptysis. No pleurisy. No chest pain. No weight loss. No other constitutional symptoms for now. He remains on a combination of Rocephin and Zithromax. He remains on long-term articulation with a Eliquis. The patient is also taken off IV Lasix today. On 04/04/2018, I'm seeing this patient for a follow-up. Todd is looking better. His that short of breath compared to yesterday. No new finding or any other new complaints. CAT scan of the chest abnormalities were noted. Nevertheless, these are things that we need to follow-up on outpatient basis. The patient may ultimately the biopsy the these abnormalities persist. For the most part, is responding to the current treatment. No nausea. No vomiting. No chest pain. No pleurisy. No hemoptysis. No other complaints otherwise. On 04/05/2018 and seeing this patient for a follow-up. Slightly confused on today's evaluation. No headaches. He is moving all 4 extremities without any limitation. No fever or chills. Overall Pulmozyme status is stable. No nausea. No vomiting. No abdominal pain. No chest pain. The patient remains on a combination of Rocephin and Zithromax. He is on a low-dose prednisone of 5 mg by mouth daily. He is on DuoNeb nebulized treatments around the clock. Echocardiogram showed a preserved LV function with an ejection fraction of 6065% . The patient has some [id number] right ventricular enlargement. Moderate degree of aortic stenosis. Moderate degree of pulmonary hypertension with a PA pressure of around 41. Objective - Vital Signs Vital signs: Vital Signs Temp 98.5 F 04/05/18 12:21 Pulse 89 04/05/18 12:21 Resp 19 04/05/18 12:21 BP 113/71 04/05/18 12:21 Pulse Ox 96 04/05/18 12:21 Intake & Output 04/04/18 04/05/18 04/05/18 18:59 06:59 18:59 Intake Total 1000 140 Output Total 645 450 Balance 355 -450 140 Weight 104.8 kg 99 kg Intake: IV 60 .9 kvo 60 Intake, IV Titration 50 Amount cefTRIAXone 1,000 mg In 50 Sodium Chloride 0.9% 50 ml @ 100 mls/hr IVPB Q24HR [facility] Rx#:[id number] Oral 350 90 Tube Feeding 590 Output: Urine 645 450 Other: Voiding Method Indwelling Catheter Urinal Urinal # Voids 1 1 - Exam GENERAL EXAM: Alert, pleasant 56-year-old white male patient, comfortable in no apparent distress. On 3 L per nasal cannula, with a pulse ox of 97% HEAD: Normocephalic/atraumatic. EYES: Normal reaction of pupils, equal size. Conjunctiva pink, sclera white. NOSE: Clear with pink turbinates. THROAT: No erythema or exudates. NECK: No masses, no JVD, no thyroid enlargement, no adenopathy. CHEST: No chest wall deformity. Symmetrical expansion. LUNGS: Diminished in the right lower lobe, no rhonchi no wheezes noted. CVS: Regular rate and rhythm, normal S1 and S2, no gallops, no murmurs, no rubs ABDOMEN: Soft, nontender. No hepatosplenomegaly, normal bowel sounds, no guarding or rigidity. EXTREMITIES: No clubbing, no edema, no cyanosis, 2+ pulses and upper and lower extremities. MUSCULOSKELETAL: Muscle strength and tone normal. SPINE: No scoliosis or deformity SKIN: No rashes CENTRAL NERVOUS SYSTEM: Alert and oriented -2. No focal deficits, tone is normal in all 4 extremities. PSYCHIATRIC: Alert and oriented -2. Appropriate affect. Intact judgment and insight. - Labs CBC & Chem 7: 04/04/18 05:27 04/04/18 16:55 Assessment and Plan Plan: #1. Acute hypoxic respiratory failure related to acute exacerbation of congestive heart failure, unspecified, his LV function is unknown at this time, echo is showed a mild degree of aortic stenosis with preserved LV function. CAT scan of the chest was repeated. There is masslike opacities in the lung bases bilaterally more so on the right. This could be also areas of rounded atelectasis/pneumonia. The patient was treated with antibiotics. The patient was also diuresed. Overall pulmonary status is stable for now. #2. Right lateral pulmonary opacities, largest measuring around 6 cm in size in the right lower lobe another smaller one in the right middle lobe and there is another no other lesions in the left lung. Possibility of malignancy cannot be completely excluded. I reviewed the CAT scan. These areas could be also areas of round atelectasis. #3. Chronic atrial fibrillation, on chronic anticoagulation, rate controlled #4. History of congestive heart failure, compensated for now #5. History of COPD #6. Dementia #7. Aortic valve stenosis, mild #8. Dementia #9. Osteoarthritis #10. Gait dysfunction #11 valvular heart disease with a preserved LV function with an ejection fraction of 6065% addition to mild to moderate aortic stenosis and secondary pulmonary hypertension with a PA pressure of around 41. #12. Delirium, currently slightly confused Plan Continue same treatment. Consider a CAT scan of the brain if there is no improvement in the mentation and resolution of the confusion. Continue the bronchodilators. Continue the same antibiotic coverage. Monitor blood work. We'll continue to follow.
[2018-04-05] MEDS: SENNOSIDES 8.6 MG TAB PO SCH (21:37)
--- NOTE | 2018-04-05 23:17 | P.PN ---
Subjective Progress Note Date: 04/05/18 Principal diagnosis: Pneumonia 82-year-old pleasant gentleman, resident of [facility] was admitted to [facility] for pneumonia CT angios the chest was opted which showed bilateral centrilobular emphysema and mass like consolidation in the left lower lobe and a 2.5 cm pleural-based mass area. Patient chest x-ray is suspicious for pulmonary edema because of which patient received Lasix. Patient is sitting in the chair is on about 2 L of oxygen now. Echocardiogram is being obtained. Patient is presently on Rocephin IV diuretics and azithromycin was on Avelox. Patient doesn't have any fevers. Does not appear to have had fevers at the the place either. Is complaining of cough without any significant sputum production. Patient is hard of hearing unable to get much of the history from the patient. 04/02/2018 Patient denied any complains of chest pain. Shortness of breath is getting better. Patient is being continued on antibiotics in the form of ceftriaxone and azithromycin. Continue with IV diuresis and breathing treatments. Echocardiogram showed ejection fraction 60-65%. Severely dilated left atrium. And moderate aortic sclerosis and mild aortic stenosis. Moderate pulmonary hypertension. Patient is currently is being monitored in the ICU. No fever no chills. No other acute overnight issues. 04/05/2018 Patient is lying in the bed comfortably. Patient was confused this morning as well as to staff. No fever no chills. Tolerating diet. No nausea vomiting or abdominal pain. Patient is being continued on DuoNeb's and prednisone 5 mg daily. Continue with antibiotics in the form of ceftriaxone and azithromycin. Patient was diuresis will and they ICU. We'll continue to monitor closely due to confusion. Current medications reviewed.. Objective - Vital Signs Vital signs: Vital Signs Temp 98.5 F 04/05/18 12:21 Pulse 89 04/05/18 12:21 Resp 19 04/05/18 12:21 BP 113/71 04/05/18 12:21 Pulse Ox 96 04/05/18 12:21 Intake & Output 04/04/18 04/05/18 04/05/18 18:59 06:59 18:59 Intake Total 1000 140 Output Total 645 450 Balance 355 -450 140 Weight 104.8 kg 99 kg Intake: IV 60 .9 kvo 60 Intake, IV Titration 50 Amount cefTRIAXone 1,000 mg In 50 Sodium Chloride 0.9% 50 ml @ 100 mls/hr IVPB Q24HR [facility] Rx#:[id number] Oral 350 90 Tube Feeding 590 Output: Urine 645 450 Other: Voiding Method Indwelling Catheter Urinal Urinal # Voids 1 1 - Exam GENERAL: The patient is alert but confused, not in any acute distress. Well developed, well nourished. HEENT: Pupils are round and equally reacting to light. EOMI. No scleral icterus. No conjunctival pallor. Normocephalic, atraumatic. No pharyngeal erythema. No thyromegaly. CARDIOVASCULAR: S1 and S2 present. No murmurs, rubs, or gallops. PULMONARY: Chest is clear to auscultation, no wheezing or crackles. Mildly decreased air entry into bilateral lung taylor. ABDOMEN: Soft, nontender, nondistended, normoactive bowel sounds. No palpable organomegaly. MUSCULOSKELETAL: No joint swelling or deformity. EXTREMITIES: No cyanosis, clubbing, or pedal edema. NEUROLOGICAL: Gross neurological examination did not reveal any focal deficits. - Labs CBC & Chem 7: 04/04/18 05:27 04/04/18 16:55 Assessment and Plan Assessment: Acute hypoxic respiratory failure secondary to chronic diastolic dysfunction with acute exacerbation . 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 Continue with IV antibiotics.. Repeat CT showedmasslike opacities in the lung bases bilaterally. Continue the home medications including oral anticoagulation. Follow up closely and further recommendations based on the clinical course. Monitor renal function. Pulmonary is on board. Time with Patient: Greater than 30
[2018-04-06] MEDS: IPRATROPIUM-ALBUTEROL 3 ML NEB INHALATION SCH ×4 (07:05→19:49)
[2018-04-06] MEDS: SYMBICORT 160-4.5 MCG INHALER INHALATION SCH ×2 (07:05→19:50)
[2018-04-06 07:49] LABS: Basophils # (A) 0.1 k/uL (0-0.2); Basophils % (A) 1 %; Eosinophils # (A) 0.2 k/uL (0-0.7); Eosinophils % (A) 2 %; HCT 34.2 % (39.0-53.0); HGB 10.8 gm/dL (13.0-17.5); Hypochromasia Slight; Lymphocytes # (A) 1.9 k/uL (1.0-4.8); Lymphocytes % (A) 20 %; MCH 27.9 pg (25.0-35.0); MCHC 31.4 g/dL (31.0-37.0); MCV 88.6 fL (80.0-100.0); Mean Platelet Volume 7.7; Monocytes % (A) 10 %; Neutrophils # (A) 6.2 k/uL (1.3-7.7); Neutrophils % (A) 64 %; Platelet Count 285 k/uL (150-450); RBC 3.86 m/uL (4.30-5.90); RDW 15.9 % (11.5-15.5); WBC 9.7 k/uL (3.8-10.6)
[2018-04-06] MEDS: DULoxetine HCL 60 MG CAPSULE.DR PO SCH (07:54)
[2018-04-06] MEDS: buPROPion SR 100 MG TABLET.ER PO SCH ×2 (07:54→20:58)
[2018-04-06] MEDS: METOPROLOL TARTRATE 12.5 MG TAB PO SCH ×2 (07:54→20:58)
[2018-04-06] MEDS: AZITHROMYCIN 500 MG TAB PO SCH (07:55)
[2018-04-06] MEDS: PANTOPRAZOLE 40 MG TABLET PO SCH (07:55)
[2018-04-06] MEDS: APIXABAN 2.5 MG TABLET PO SCH ×2 (07:55→20:58)
[2018-04-06] MEDS: ASPIRIN 81 MG PO SCH (07:55)
[2018-04-06] MEDS: FERROUS SULFATE 325 MG TAB PO SCH ×2 (07:55→17:52)
[2018-04-06 07:56] LABS: Potassium 3.8 mmol/L (3.5-5.1)
[2018-04-06] MEDS: predniSONE 5 MG TAB PO SCH (09:24)
--- NOTE | 2018-04-06 15:48 | P.PN ---
Subjective Progress Note Date: 04/06/18 Principal diagnosis: Acute hypoxic respiratory failure secondary to diastolic congestive heart failure, rounded atelectasis and possible pneumonia involving the right lower lobe. Right pleural effusion. This is a 82-year-old white male patient that resides at [facility] , who was brought into the emergency department at the [facility] for evaluation of progressive shortness of breath, cough, phlegm production over the course of 3 days. He denied any fever or chills, denied any chest pain. Past medical history is significant for chronic congestive heart failure, COPD, chronic atrial fibrillation on chronic anticoagulation, chronic anemia, aortic valve stenosis, anxiety, peripheral vascular disease, dementia, depression, sleep apnea, GERD, osteoarthritis, chronic kidney disease. CT angios of the chest was obtained, and showed bilateral centrilobular emphysema, consolidation in the posterior basal segment of the left lower lobe, it was a 2.5 cm pleural- based mass in the left lower lobe laterally. Right lower lobe atelectasis, and consolidation, and 5.9 mm pulmonary nodule in the posterior subsubsegment of the right upper lobe. Bilateral bilateral pleural effusions right greater than the left. Lab work completed at [facility] showed WBC of 9.5, hemoglobin is 11.0, platelet count 292, troponin was 0.017, sodium is 143, potassium 3.7, CO2 of 37, BUN 20, creatinine of 1.4, which is well within normal limits, proBNP was elevated at 1674. No fever or chills, patient was started on empiric Avelox no form of azithromycin and Rocephin, IV diuretics Lasix 40 mg every 12 hours, nebulized bronchodilators, and patient was transferred to [facility]. Currently he is seen in the intensive care unit, he is a selective care overflow., Comfortable, denies any fever or chills, denies any chest pain. Afebrile, currently on 3 L per nasal cannula and his pulse ox 97%, hemodynamically stable, he is A. fib on the monitor with a rate of 84. Chest x-ray was completed here in showed a round lower lobe rounded masslike opacity could represent pneumonia, confluent edema or pulmonary mass. Currently megaly, mild pulmonary vessel congestion and pleural effusions. This morning his blood work showed WBC of 10.0, hemoglobin is 11.6, sodium is 141, potassium is 4.3, chloride is 97, CO2 of 37, B1 is 24 creatinine is 1.1. Troponins were negative 1, urinalysis was unremarkable. On today's evaluation of 04/02/2018, Todd is feeling better. The patient is less short of breath. No chest pain. No significant cough sputum production chest tightness or wheezing. Patient remains on a combination of DuoNeb nebulized treatments around the clock, Rocephin and Zithromax as an empiric antibiotic coverage the patient is being diuresed IV Lasix 40 mg on a daily basis. The repeat chest x-ray showed a right lower lobe rounded masslike opacity. There is also confluent edema. There is also cardiomegaly with mild four-vessel congestion. Echocardiogram revealed ejection fraction of 6065%. The patient has severe dilated LA. Moderate aortic sclerosis. Mild aortic stenosis. Moderate pulmonary hypertension. Right ventricle systolic pressure of around 41 mmHg. Her white cell count is not elevated. The patient is making adequate amount of urine output. No complaints otherwise for now. The patient can be moved to telemetry unit.. On 04/03/2018, I am seeing this patient for a follow-up regarding shortness of breath and acute hypoxic respiratory failure. The patient responded to antibiotics and diuretics. However he continued to have abnormalities in the lung bases bilaterally. Based on that, a CAT scan of the chest was done and showed COPD and small bilateral pleural effusion right more than left. There is bibasilar lung densities within the lingula in the right middle lobe and right lower lobe. This could be potentially atelectatic lung segments although possibility of malignancy cannot be completely ruled out. The largest area of opacity is around 5.7 x 6.7 cm in size in the right lower lobe and another 5.7 x 5.1 cm opacity in the right middle lobe. There are also small peripheral densities measuring 2.8 x 1.5 cm in size. Infiltrating mass is within the differential diagnosis. Nevertheless, the patient is feeling well. No hemoptysis. No pleurisy. No chest pain. No weight loss. No other constitutional symptoms for now. He remains on a combination of Rocephin and Zithromax. He remains on long-term articulation with a Eliquis. The patient is also taken off IV Lasix today. On 04/04/2018, I'm seeing this patient for a follow-up. Todd is looking better. His that short of breath compared to yesterday. No new finding or any other new complaints. CAT scan of the chest abnormalities were noted. Nevertheless, these are things that we need to follow-up on outpatient basis. The patient may ultimately the biopsy the these abnormalities persist. For the most part, is responding to the current treatment. No nausea. No vomiting. No chest pain. No pleurisy. No hemoptysis. No other complaints otherwise. On 04/05/2018 and seeing this patient for a follow-up. Slightly confused on today's evaluation. No headaches. He is moving all 4 extremities without any limitation. No fever or chills. Overall Pulmozyme status is stable. No nausea. No vomiting. No abdominal pain. No chest pain. The patient remains on a combination of Rocephin and Zithromax. He is on a low-dose prednisone of 5 mg by mouth daily. He is on DuoNeb nebulized treatments around the clock. Echocardiogram showed a preserved LV function with an ejection fraction of 6065% . The patient has some [id number] right ventricular enlargement. Moderate degree of aortic stenosis. Moderate degree of pulmonary hypertension with a PA pressure of around 41. Patient was reevaluated today on 04/06/2018, remains confused, very hard of hearing, however he seems to be comfortable and in no form of distress. Remains on antibiotics in the form of Rocephin and Zithromax. I did review the chest x-ray and the CT of the chest, there is clearly some significant abnormality noted in the right lower lobe, strongly suspect rounded atelectasis and or pneumonia, patient is not the most ideal candidate for bronchoscopy and he is not a candidate for any major intervention. Hence I chose to continue present treatment plan conservatively with antibiotics, bronchodilators, diuretics, will recommend ultrasound of the chest and possibly consider thoracentesis. Patient had good LV function, but he was found to have moderate degree of aortic stenosis. And elevated right-sided pressures. Patient is relatively asymptomatic, he is extremely hard of hearing, and could not maintain an adequate conversation with the patient. Objective - Vital Signs Vital signs: Vital Signs Temp 98.5 F 04/06/18 13:42 Pulse 77 04/06/18 13:42 Resp 24 04/06/18 13:42 BP 109/67 04/06/18 13:42 Pulse Ox 95 04/06/18 13:42 Intake & Output 04/05/18 04/06/18 04/06/18 18:59 06:59 18:59 Intake Total 140 900 Output Total 200 Balance 140 900 -200 Weight 97.5 kg Intake: Intake, IV Titration 50 100 Amount cefTRIAXone 1,000 mg In 50 100 Sodium Chloride 0.9% 50 ml @ 100 mls/hr IVPB Q24HR [facility] Rx#:[id number] Oral 90 800 Output: Urine 200 Other: Voiding Method Urinal Urinal Urinal # Voids 1 3 2 - Exam Physical Exam: Revealed a 56-year-old white male in no distress, on 3 L nasal cannula. Head: Atraumatic, normocephalic. HEENT:[Neck is supple.] [No neck masses.] [No thyromegaly.] [No JVD.] PERRLA, EOMI, dry mucous membranes. Chest: [Diminished breath sounds and crackles at the right base. No chest wall tenderness, symmetrical chest expansion noted. Cardiac Exam: [Normal S1 and S2, no S3 gallop, no murmur.] Abdomen: [Soft, nontender, no megaly, no rebound, no guarding, normal bowel sounds.] Extremities: [No clubbing, no edema, no cyanosis.] Neurological Exam: Confused, hard of hearing, Lymphatics: No lymphadenopathy. - Labs CBC & Chem 7: 04/06/18 07:15 04/06/18 07:15 Labs: Abnormal Lab Results - Last 24 Hours (Table) 04/06/18 04/06/18 Range/Units 07:15 07:15 RBC 3.86 L (4.30-5.90) m/uL Hgb 10.8 L (13.0-17.5) gm/dL Hct 34.2 L (39.0-53.0) % RDW 15.9 H (11.5-15.5) % Chloride 97 L (98-107) mmol/L Carbon Dioxide 39 H (22-30) mmol/L Assessment and Plan Assessment: Impression: 1 acute hypoxic respiratory failure secondary to diastolic congestive heart failure, right lower lobe rounded atelectasis and possible pneumonia, right- sided pleural effusion, possibility of malignancy involving the right lower lobe is not entirely ruled out, patient is not the most ideal candidate for any major intervention. [address] of the chest with bilateral rounded opacities, again could be atelectasis, could be rounded pneumonia, could be malignancy. At this point I would recommend conservative measures, plus ultrasound of the chest, consider right-sided thoracentesis if the effusion is large enough to be drained. 3 chronic atrial fibrillation 4 history of COPD 5 dementia 6 aortic stenosis 7 osteoarthritis 8 gait dysfunction Recommendation: Continue present treatment plan, recommended ultrasound of the chest, may actually consider thoracentesis. Patient is definitely high risk for bronchoscopy at this point. But this could be done and addressed on an outpatient basis once the patient is stabilized and hopefully discharged home. Will definitely need a follow-up on outpatient basis. Time with Patient: Less than 30
--- NOTE | 2018-04-06 16:37 | US ---
EXAMINATION TYPE: US chest DATE OF EXAM: 04/06/2018 COMPARISON: CT, xray CLINICAL HISTORY: Markings for thoracentesis by pulmonary staff. TECHNIQUE: Targeted ultrasound of the posterior lower bilateral hemithoraces EXAM MEASUREMENTS: Right Pleural Effusion pocket size: 2.3 cm Right skin surface to fluid distance: 3.4 cm Left Pleural Effusion pocket size: 1.1 cm Left skin surface to fluid distance: 3.2 cm Right side not marked for possible thoracentesis outside the dept. Left side not marked for possible thoracentesis outside the dept. Pulmonologists are able to review the images in the patient?s EMR. IMPRESSIONS: Minimal effusion right greater than left.
[2018-04-06] MEDS: SENNOSIDES 8.6 MG TAB PO SCH (20:58)
[2018-04-06] MEDS: ALPRAZolam 0.25 MG TAB PO PRN (20:58)
--- NOTE | 2018-04-06 23:46 | P.PN ---
Subjective Progress Note Date: 04/06/18 Principal diagnosis: Pneumonia 82-year-old pleasant gentleman, resident of [facility] was admitted to [facility] for pneumonia CT angios the chest was opted which showed bilateral centrilobular emphysema and mass like consolidation in the left lower lobe and a 2.5 cm pleural-based mass area. Patient chest x-ray is suspicious for pulmonary edema because of which patient received Lasix. Patient is sitting in the chair is on about 2 L of oxygen now. Echocardiogram is being obtained. Patient is presently on Rocephin IV diuretics and azithromycin was on Avelox. Patient doesn't have any fevers. Does not appear to have had fevers at the the place either. Is complaining of cough without any significant sputum production. Patient is hard of hearing unable to get much of the history from the patient. 04/02/2018 Patient denied any complains of chest pain. Shortness of breath is getting better. Patient is being continued on antibiotics in the form of ceftriaxone and azithromycin. Continue with IV diuresis and breathing treatments. Echocardiogram showed ejection fraction 60-65%. Severely dilated left atrium. And moderate aortic sclerosis and mild aortic stenosis. Moderate pulmonary hypertension. Patient is currently is being monitored in the ICU. No fever no chills. No other acute overnight issues. 04/05/2018 Patient is lying in the bed comfortably. Patient was confused this morning as well as to staff. No fever no chills. Tolerating diet. No nausea vomiting or abdominal pain. Patient is being continued on DuoNeb's and prednisone 5 mg daily. Continue with antibiotics in the form of ceftriaxone and azithromycin. Patient was diuresis will and they ICU. We'll continue to monitor closely due to confusion. 04/06/2018 Patient is sitting in the bed comfortably. Otherwise still confused but more awake and oriented today. Shortness of breath is stable. Being continued on antibiotics in the form of azithromycin and ceftriaxone. Continued on steroids. Otherwise patient is not a candidate for bronchoscopy and further evaluation of right lower lobe abnormality. Continue the current medical management and follow closely. Pulmonary is on board. Current medications reviewed.. Objective - Vital Signs Vital signs: Vital Signs Temp 98.5 F 04/06/18 13:42 Pulse 88 04/06/18 15:57 Resp 24 04/06/18 13:42 BP 109/67 04/06/18 13:42 Pulse Ox 97 04/06/18 15:47 Intake & Output 04/05/18 04/06/18 04/06/18 18:59 06:59 18:59 Intake Total 140 900 Output Total 200 Balance 140 900 -200 Weight 97.5 kg Intake: Intake, IV Titration 50 100 Amount cefTRIAXone 1,000 mg In 50 100 Sodium Chloride 0.9% 50 ml @ 100 mls/hr IVPB Q24HR [facility] Rx#:[id number] Oral 90 800 Output: Urine 200 Other: Voiding Method Urinal Urinal Urinal # Voids 1 3 2 - Exam GENERAL: The patient is alert but confused, not in any acute distress. Well developed, well nourished. HEENT: Pupils are round and equally reacting to light. EOMI. No scleral icterus. No conjunctival pallor. Normocephalic, atraumatic. No pharyngeal erythema. No thyromegaly. CARDIOVASCULAR: S1 and S2 present. No murmurs, rubs, or gallops. PULMONARY: Chest is clear to auscultation, no wheezing or crackles. Mildly decreased air entry into bilateral lung tyalor. ABDOMEN: Soft, nontender, nondistended, normoactive bowel sounds. No palpable organomegaly. MUSCULOSKELETAL: No joint swelling or deformity. EXTREMITIES: No cyanosis, clubbing, or pedal edema. NEUROLOGICAL: Gross neurological examination did not reveal any focal deficits. - Labs CBC & Chem 7: 04/06/18 07:15 04/06/18 07:15 Labs: Abnormal Lab Results - Last 24 Hours (Table) 04/06/18 04/06/18 Range/Units 07:15 07:15 RBC 3.86 L (4.30-5.90) m/uL Hgb 10.8 L (13.0-17.5) gm/dL Hct 34.2 L (39.0-53.0) % RDW 15.9 H (11.5-15.5) % Chloride 97 L (98-107) mmol/L Carbon Dioxide 39 H (22-30) mmol/L Assessment and Plan Assessment: Acute hypoxic respiratory failure secondary to chronic diastolic dysfunction with acute exacerbation . Echocardiogram showed with a contraction 60-65% -Moderate pulmonary hypertension, mild aortic valve stenosis -Right lower lobe mass or consolidation/pneumonia for which patient is receiving antibiotics, repeat CT was done. Patient is not a candidate for bronchoscopy. 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 Continue with IV antibiotics.. Repeat CT showed masslike opacities in the lung bases bilaterally. Patient is not a candidate for further intervention. Continue the home medications including oral anticoagulation. Follow up closely and further recommendations based on the clinical course. Monitor renal function. Pulmonary is on board. Time with Patient: Greater than 30
[2018-04-07] MEDS: SYMBICORT 160-4.5 MCG INHALER INHALATION SCH ×2 (08:31→19:14)
[2018-04-07] MEDS: IPRATROPIUM-ALBUTEROL 3 ML NEB INHALATION SCH ×4 (08:31→19:14)
[2018-04-07] MEDS: FERROUS SULFATE 325 MG TAB PO SCH ×2 (09:36→18:20)
[2018-04-07] MEDS: PANTOPRAZOLE 40 MG TABLET PO SCH (09:37)
[2018-04-07] MEDS: ASPIRIN 81 MG PO SCH (09:37)
[2018-04-07] MEDS: AZITHROMYCIN 500 MG TAB PO SCH (09:37)
[2018-04-07] MEDS: buPROPion SR 100 MG TABLET.ER PO SCH ×2 (09:37→21:03)
[2018-04-07] MEDS: APIXABAN 2.5 MG TABLET PO SCH ×2 (09:37→21:03)
[2018-04-07] MEDS: predniSONE 5 MG TAB PO SCH (09:39)
[2018-04-07] MEDS: DULoxetine HCL 60 MG CAPSULE.DR PO SCH (09:39)
[2018-04-07] MEDS: METOPROLOL TARTRATE 12.5 MG TAB PO SCH ×2 (13:47→21:03)
--- NOTE | 2018-04-07 15:59 | P.PN ---
Subjective Progress Note Date: 04/07/18 Principal diagnosis: Acute hypoxic respiratory failure secondary to diastolic congestive heart failure, rounded atelectasis and possible pneumonia involving the right lower lobe This is a 82-year-old white male patient that resides at [facility] , who was brought into the emergency department at the [facility] for evaluation of progressive shortness of breath, cough, phlegm production over the course of 3 days. He denied any fever or chills, denied any chest pain. Past medical history is significant for chronic congestive heart failure, COPD, chronic atrial fibrillation on chronic anticoagulation, chronic anemia, aortic valve stenosis, anxiety, peripheral vascular disease, dementia, depression, sleep apnea, GERD, osteoarthritis, chronic kidney disease. CT angios of the chest was obtained, and showed bilateral centrilobular emphysema, consolidation in the posterior basal segment of the left lower lobe, it was a 2.5 cm pleural- based mass in the left lower lobe laterally. Right lower lobe atelectasis, and consolidation, and 5.9 mm pulmonary nodule in the posterior subsubsegment of the right upper lobe. Bilateral bilateral pleural effusions right greater than the left. Lab work completed at [facility] showed WBC of 9.5, hemoglobin is 11.0, platelet count 292, troponin was 0.017, sodium is 143, potassium 3.7, CO2 of 37, BUN 20, creatinine of 1.4, which is well within normal limits, proBNP was elevated at 1674. No fever or chills, patient was started on empiric Avelox no form of azithromycin and Rocephin, IV diuretics Lasix 40 mg every 12 hours, nebulized bronchodilators, and patient was transferred to [facility]. Currently he is seen in the intensive care unit, he is a selective care overflow., Comfortable, denies any fever or chills, denies any chest pain. Afebrile, currently on 3 L per nasal cannula and his pulse ox 97%, hemodynamically stable, he is A. fib on the monitor with a rate of 84. Chest x-ray was completed here in showed a round lower lobe rounded masslike opacity could represent pneumonia, confluent edema or pulmonary mass. Currently megaly, mild pulmonary vessel congestion and pleural effusions. This morning his blood work showed WBC of 10.0, hemoglobin is 11.6, sodium is 141, potassium is 4.3, chloride is 97, CO2 of 37, B1 is 24 creatinine is 1.1. Troponins were negative 1, urinalysis was unremarkable. On today's evaluation of 04/02/2018, Todd is feeling better. The patient is less short of breath. No chest pain. No significant cough sputum production chest tightness or wheezing. Patient remains on a combination of DuoNeb nebulized treatments around the clock, Rocephin and Zithromax as an empiric antibiotic coverage the patient is being diuresed IV Lasix 40 mg on a daily basis. The repeat chest x-ray showed a right lower lobe rounded masslike opacity. There is also confluent edema. There is also cardiomegaly with mild four-vessel congestion. Echocardiogram revealed ejection fraction of 6065%. The patient has severe dilated LA. Moderate aortic sclerosis. Mild aortic stenosis. Moderate pulmonary hypertension. Right ventricle systolic pressure of around 41 mmHg. Her white cell count is not elevated. The patient is making adequate amount of urine output. No complaints otherwise for now. The patient can be moved to telemetry unit.. On 04/03/2018, I am seeing this patient for a follow-up regarding shortness of breath and acute hypoxic respiratory failure. The patient responded to antibiotics and diuretics. However he continued to have abnormalities in the lung bases bilaterally. Based on that, a CAT scan of the chest was done and showed COPD and small bilateral pleural effusion right more than left. There is bibasilar lung densities within the lingula in the right middle lobe and right lower lobe. This could be potentially atelectatic lung segments although possibility of malignancy cannot be completely ruled out. The largest area of opacity is around 5.7 x 6.7 cm in size in the right lower lobe and another 5.7 x 5.1 cm opacity in the right middle lobe. There are also small peripheral densities measuring 2.8 x 1.5 cm in size. Infiltrating mass is within the differential diagnosis. Nevertheless, the patient is feeling well. No hemoptysis. No pleurisy. No chest pain. No weight loss. No other constitutional symptoms for now. He remains on a combination of Rocephin and Zithromax. He remains on long-term articulation with a Eliquis. The patient is also taken off IV Lasix today. On 04/04/2018, I'm seeing this patient for a follow-up. Todd is looking better. His that short of breath compared to yesterday. No new finding or any other new complaints. CAT scan of the chest abnormalities were noted. Nevertheless, these are things that we need to follow-up on outpatient basis. The patient may ultimately the biopsy the these abnormalities persist. For the most part, is responding to the current treatment. No nausea. No vomiting. No chest pain. No pleurisy. No hemoptysis. No other complaints otherwise. On 04/05/2018 and seeing this patient for a follow-up. Slightly confused on today's evaluation. No headaches. He is moving all 4 extremities without any limitation. No fever or chills. Overall Pulmozyme status is stable. No nausea. No vomiting. No abdominal pain. No chest pain. The patient remains on a combination of Rocephin and Zithromax. He is on a low-dose prednisone of 5 mg by mouth daily. He is on DuoNeb nebulized treatments around the clock. Echocardiogram showed a preserved LV function with an ejection fraction of 6065% . The patient has some [id number] right ventricular enlargement. Moderate degree of aortic stenosis. Moderate degree of pulmonary hypertension with a PA pressure of around 41. Patient was reevaluated today on 04/06/2018, remains confused, very hard of hearing, however he seems to be comfortable and in no form of distress. Remains on antibiotics in the form of Rocephin and Zithromax. I did review the chest x-ray and the CT of the chest, there is clearly some significant abnormality noted in the right lower lobe, strongly suspect rounded atelectasis and or pneumonia, patient is not the most ideal candidate for bronchoscopy and he is not a candidate for any major intervention. Hence I chose to continue present treatment plan conservatively with antibiotics, bronchodilators, diuretics, will recommend ultrasound of the chest and possibly consider thoracentesis. Patient had good LV function, but he was found to have moderate degree of aortic stenosis. And elevated right-sided pressures. Patient is relatively asymptomatic, he is extremely hard of hearing, and could not maintain an adequate conversation with the patient. On 04/07/2018 patient seen in follow-up on medical surgical floor. He is resting comfortably in bed, in no acute distress. He is on 2 L per nasal cannula, his pulse ox is 94-95%, no worsening dyspnea, no shortness of breath, patient is afebrile. Ultrasound of the chest was completed, and showed small right pleural fluid pockets measuring 2.3 cm, and left pleural fluid pocket of 1.1 cm, not large enough thoracentesis. No fever or chills. Lung sounds are positive for diminished breath sounds, and some minimal crackles at the right base. His labs were reviewed, WBC is 9.7, hemoglobin is 10.8, renal profile is within normal limits, electrolytes are relatively unremarkable. Patient is On a combination of antibiotics including Zithromax and Rocephin. Clinically improving, no acute events overnight, no specific complaints. Objective - Vital Signs Vital signs: Vital Signs Temp 97.8 F 04/07/18 05:51 Pulse 96 04/07/18 12:03 Resp 22 04/07/18 08:30 BP 95/62 04/07/18 09:34 Pulse Ox 94 L 04/07/18 08:31 Intake & Output 04/06/18 04/07/18 04/07/18 18:59 06:59 18:59 Intake Total 640 Output Total 200 Balance -200 640 Weight 101.5 kg Intake: Oral 640 Output: Urine 200 Other: Voiding Method Urinal Urinal Urinal # Voids 2 1 - Exam Physical Exam: Revealed a 56-year-old white male in no distress, on 3 L nasal cannula. Head: Atraumatic, normocephalic. HEENT:[Neck is supple.] [No neck masses.] [No thyromegaly.] [No JVD.] PERRLA, EOMI, dry mucous membranes. Chest: [Diminished breath sounds and crackles at the right base. No chest wall tenderness, symmetrical chest expansion noted. Cardiac Exam: [Normal S1 and S2, no S3 gallop, no murmur.] Abdomen: [Soft, nontender, no megaly, no rebound, no guarding, normal bowel sounds.] Extremities: [No clubbing, no edema, no cyanosis.] Neurological Exam: Confused, hard of hearing, Lymphatics: No lymphadenopathy. - Labs CBC & Chem 7: 04/06/18 07:15 04/06/18 07:15 Assessment and Plan Plan: Assessment: #1. Acute hypoxic respiratory failure related to acute exacerbation of congestive heart failure with preserved left ventricular systolic function, right lower lobe rounded atelectasis and possible pneumonia, right-sided pleural effusion, possibility of malignancy involving the right lower lobe is not entirely ruled out, patient is not the most ideal candidate for any major intervention. #2. abnormal CT of the chest with bilateral rounded opacities, again could be atelectasis, could be rounded pneumonia, could be malignancy. At this point I would recommend conservative measures, plus ultrasound of the chest, consider right-sided thoracentesis if the effusion is large enough to be drained. On 04/07/2018 patient is calm and comfortable, in no acute distress, ultrasound of the chest showed small pleural fluid pockets not large enough to drain. Patient is asymptomatic no worsening shortness of breath, no chest pain. #3. Chronic atrial fibrillation, on chronic anticoagulation #4. History of congestive heart failure #5. History of COPD #6. Dementia #7. Aortic valve stenosis #8. Dementia #9. Osteoarthritis #10. Gait dysfunction #11. Chronic kidney disease Plan: Continue current treatment plan, ultrasound of the chest showed small pleural effusions, not large enough to drain. No worsening shortness of breath, patient is asymptomatic. No fever or chills. No chest pain. Tolerating diet, no nausea, vomiting or abdominal pain. We'll continue to follow. Patient is improving, anticipate discharge back to the long-term in the next 24 hours. We will streamline the antibiotics to Levaquin daily for 7 more days. Discontinue Rocephin and Zithromax. I performed a history & physical examination of the patient and discussed their management with my nurse practitioner, Keke Gray. I reviewed the nurse practitioner's note and agree with the documented findings and plan of care. Lung sounds are diminished right lower lobe. The findings and the impression was discussed with the patient. I attest to the documentation by the nurse practitioner. Time with Patient: Less than 30
[2018-04-07] MEDS: DOCUSATE 100 MG CAP PO PRN (16:38)
[2018-04-07] MEDS: ALPRAZolam 0.25 MG TAB PO PRN (18:24)
[2018-04-07] MEDS: SENNOSIDES 8.6 MG TAB PO SCH (21:03)
[2018-04-08] MEDS: SYMBICORT 160-4.5 MCG INHALER INHALATION SCH (07:55)
[2018-04-08] MEDS ORDERED: LEVOFLOXACIN 750 MG TAB PO SCH (09:00)
[2018-04-08] MEDS: FERROUS SULFATE 325 MG TAB PO SCH ×2 (09:25→17:49)
[2018-04-08] MEDS: METOPROLOL TARTRATE 12.5 MG TAB PO SCH (09:25)
[2018-04-08] MEDS: buPROPion SR 100 MG TABLET.ER PO SCH (09:25)
[2018-04-08] MEDS: PANTOPRAZOLE 40 MG TABLET PO SCH (09:25)
[2018-04-08] MEDS: predniSONE 5 MG TAB PO SCH (09:25)
[2018-04-08] MEDS: APIXABAN 2.5 MG TABLET PO SCH (09:26)
[2018-04-08] MEDS: ASPIRIN 81 MG PO SCH (09:26)
[2018-04-08] MEDS: DULoxetine HCL 60 MG CAPSULE.DR PO SCH (09:26)
[2018-04-08 11:04] VITALS: BMI 30.2
[2018-04-08] MEDS: IPRATROPIUM-ALBUTEROL 3 ML NEB INHALATION SCH ×3 (11:51→16:31)
--- NOTE | 2018-04-08 12:04 | P.PN ---
Subjective Progress Note Date: 04/08/18 Principal diagnosis: Acute hypoxic respiratory failure secondary to diastolic congestive heart failure, rounded atelectasis and possible pneumonia involving the right lower lobe This is a 82-year-old white male patient that resides at [facility] , who was brought into the emergency department at the [facility] for evaluation of progressive shortness of breath, cough, phlegm production over the course of 3 days. He denied any fever or chills, denied any chest pain. Past medical history is significant for chronic congestive heart failure, COPD, chronic atrial fibrillation on chronic anticoagulation, chronic anemia, aortic valve stenosis, anxiety, peripheral vascular disease, dementia, depression, sleep apnea, GERD, osteoarthritis, chronic kidney disease. CT angios of the chest was obtained, and showed bilateral centrilobular emphysema, consolidation in the posterior basal segment of the left lower lobe, it was a 2.5 cm pleural- based mass in the left lower lobe laterally. Right lower lobe atelectasis, and consolidation, and 5.9 mm pulmonary nodule in the posterior subsubsegment of the right upper lobe. Bilateral bilateral pleural effusions right greater than the left. Lab work completed at [facility] showed WBC of 9.5, hemoglobin is 11.0, platelet count 292, troponin was 0.017, sodium is 143, potassium 3.7, CO2 of 37, BUN 20, creatinine of 1.4, which is well within normal limits, proBNP was elevated at 1674. No fever or chills, patient was started on empiric Avelox no form of azithromycin and Rocephin, IV diuretics Lasix 40 mg every 12 hours, nebulized bronchodilators, and patient was transferred to [facility]. Currently he is seen in the intensive care unit, he is a selective care overflow., Comfortable, denies any fever or chills, denies any chest pain. Afebrile, currently on 3 L per nasal cannula and his pulse ox 97%, hemodynamically stable, he is A. fib on the monitor with a rate of 84. Chest x-ray was completed here in showed a round lower lobe rounded masslike opacity could represent pneumonia, confluent edema or pulmonary mass. Currently megaly, mild pulmonary vessel congestion and pleural effusions. This morning his blood work showed WBC of 10.0, hemoglobin is 11.6, sodium is 141, potassium is 4.3, chloride is 97, CO2 of 37, B1 is 24 creatinine is 1.1. Troponins were negative 1, urinalysis was unremarkable. On today's evaluation of 04/02/2018, Todd is feeling better. The patient is less short of breath. No chest pain. No significant cough sputum production chest tightness or wheezing. Patient remains on a combination of DuoNeb nebulized treatments around the clock, Rocephin and Zithromax as an empiric antibiotic coverage the patient is being diuresed IV Lasix 40 mg on a daily basis. The repeat chest x-ray showed a right lower lobe rounded masslike opacity. There is also confluent edema. There is also cardiomegaly with mild four-vessel congestion. Echocardiogram revealed ejection fraction of 6065%. The patient has severe dilated LA. Moderate aortic sclerosis. Mild aortic stenosis. Moderate pulmonary hypertension. Right ventricle systolic pressure of around 41 mmHg. Her white cell count is not elevated. The patient is making adequate amount of urine output. No complaints otherwise for now. The patient can be moved to telemetry unit.. On 04/03/2018, I am seeing this patient for a follow-up regarding shortness of breath and acute hypoxic respiratory failure. The patient responded to antibiotics and diuretics. However he continued to have abnormalities in the lung bases bilaterally. Based on that, a CAT scan of the chest was done and showed COPD and small bilateral pleural effusion right more than left. There is bibasilar lung densities within the lingula in the right middle lobe and right lower lobe. This could be potentially atelectatic lung segments although possibility of malignancy cannot be completely ruled out. The largest area of opacity is around 5.7 x 6.7 cm in size in the right lower lobe and another 5.7 x 5.1 cm opacity in the right middle lobe. There are also small peripheral densities measuring 2.8 x 1.5 cm in size. Infiltrating mass is within the differential diagnosis. Nevertheless, the patient is feeling well. No hemoptysis. No pleurisy. No chest pain. No weight loss. No other constitutional symptoms for now. He remains on a combination of Rocephin and Zithromax. He remains on long-term articulation with a Eliquis. The patient is also taken off IV Lasix today. On 04/04/2018, I'm seeing this patient for a follow-up. Todd is looking better. His that short of breath compared to yesterday. No new finding or any other new complaints. CAT scan of the chest abnormalities were noted. Nevertheless, these are things that we need to follow-up on outpatient basis. The patient may ultimately the biopsy the these abnormalities persist. For the most part, is responding to the current treatment. No nausea. No vomiting. No chest pain. No pleurisy. No hemoptysis. No other complaints otherwise. On 04/05/2018 and seeing this patient for a follow-up. Slightly confused on today's evaluation. No headaches. He is moving all 4 extremities without any limitation. No fever or chills. Overall Pulmozyme status is stable. No nausea. No vomiting. No abdominal pain. No chest pain. The patient remains on a combination of Rocephin and Zithromax. He is on a low-dose prednisone of 5 mg by mouth daily. He is on DuoNeb nebulized treatments around the clock. Echocardiogram showed a preserved LV function with an ejection fraction of 6065% . The patient has some [id number] right ventricular enlargement. Moderate degree of aortic stenosis. Moderate degree of pulmonary hypertension with a PA pressure of around 41. Patient was reevaluated today on 04/06/2018, remains confused, very hard of hearing, however he seems to be comfortable and in no form of distress. Remains on antibiotics in the form of Rocephin and Zithromax. I did review the chest x-ray and the CT of the chest, there is clearly some significant abnormality noted in the right lower lobe, strongly suspect rounded atelectasis and or pneumonia, patient is not the most ideal candidate for bronchoscopy and he is not a candidate for any major intervention. Hence I chose to continue present treatment plan conservatively with antibiotics, bronchodilators, diuretics, will recommend ultrasound of the chest and possibly consider thoracentesis. Patient had good LV function, but he was found to have moderate degree of aortic stenosis. And elevated right-sided pressures. Patient is relatively asymptomatic, he is extremely hard of hearing, and could not maintain an adequate conversation with the patient. On 04/07/2018 patient seen in follow-up on medical surgical floor. He is resting comfortably in bed, in no acute distress. He is on 2 L per nasal cannula, his pulse ox is 94-95%, no worsening dyspnea, no shortness of breath, patient is afebrile. Ultrasound of the chest was completed, and showed small right pleural fluid pockets measuring 2.3 cm, and left pleural fluid pocket of 1.1 cm, not large enough thoracentesis. No fever or chills. Lung sounds are positive for diminished breath sounds, and some minimal crackles at the right base. His labs were reviewed, WBC is 9.7, hemoglobin is 10.8, renal profile is within normal limits, electrolytes are relatively unremarkable. Patient is On a combination of antibiotics including Zithromax and Rocephin. Clinically improving, no acute events overnight, no specific complaints. On 04/08/2018 patient seen in follow-up. Sitting up in the chair, in no acute distress, denies any shortness of breath or chest pain. No fever or chills, currently on 2 L per nasal cannula, his pulse ox is 93%, hemodynamically stable , lung sounds are positive for some minimal rales at the bases. No rhonchi, no wheezes. No acute events overnight, no specific complaints, we simplify patient 's antibiotics, and patient is currently on oral Levaquin for 7 more days, he is on oral prednisone, nebulized bronchodilators. Clinically patient is improving, increase activity as tolerated, anticipate discharge back to the [facility] today Objective - Vital Signs Vital signs: Vital Signs Temp 98.5 F 04/08/18 04:36 Pulse 90 04/08/18 11:58 Resp 18 04/08/18 08:57 BP 102/57 04/08/18 04:36 Pulse Ox 93 L 04/08/18 04:36 Intake & Output 04/07/18 04/08/18 04/08/18 18:59 06:59 18:59 Output Total 350 Balance -350 Weight 100.9 kg 100.9 kg Output: Urine 350 Other: Voiding Method Urinal Urinal Urinal # Voids 2 1 - Exam Physical Exam: Revealed a 56-year-old white male in no distress, on 2 L nasal cannula. Head: Atraumatic, normocephalic. HEENT:[Neck is supple.] [No neck masses.] [No thyromegaly.] [No JVD.] PERRLA, EOMI, dry mucous membranes. Chest: [Diminished breath sounds and crackles at the right base. No chest wall tenderness, symmetrical chest expansion noted. Cardiac Exam: [Normal S1 and S2, no S3 gallop, no murmur.] Abdomen: [Soft, nontender, no megaly, no rebound, no guarding, normal bowel sounds.] Extremities: [No clubbing, no edema, no cyanosis.] Neurological Exam: Confused, hard of hearing, Lymphatics: No lymphadenopathy. - Labs CBC & Chem 7: 04/06/18 07:15 04/06/18 07:15 Assessment and Plan Plan: Assessment: #1. Acute hypoxic respiratory failure related to acute exacerbation of congestive heart failure with preserved left ventricular systolic function, right lower lobe rounded atelectasis and possible pneumonia, right-sided pleural effusion, possibility of malignancy involving the right lower lobe is not entirely ruled out, patient is not the most ideal candidate for any major intervention. #2. abnormal CT of the chest with bilateral rounded opacities, again could be atelectasis, could be rounded pneumonia, could be malignancy. At this point I would recommend conservative measures, plus ultrasound of the chest, consider right-sided thoracentesis if the effusion is large enough to be drained. On 04/07/2018 patient is calm and comfortable, in no acute distress, ultrasound of the chest showed small pleural fluid pockets not large enough to drain. Patient is asymptomatic no worsening shortness of breath, no chest pain. #3. Chronic atrial fibrillation, on chronic anticoagulation #4. History of congestive heart failure #5. History of COPD #6. Dementia #7. Aortic valve stenosis #8. Dementia #9. Osteoarthritis #10. Gait dysfunction #11. Chronic kidney disease Plan: Patient remains stable, no worsening dyspnea, no chest pain, no fever or chills , vital signs are stable. No acute events overnight, we simplified the antibiotics, and patient can be discharged on 7 more days of oral Levaquin 750 mg daily, oral prednisone, nebulized bronchodilators. From pulmonary perspective patient is stable for discharge to [facility] today. I performed a history & physical examination of the patient and discussed their management with my nurse practitioner, Keke Gray. I reviewed the nurse practitioner's note and agree with the documented findings and plan of care. Lung sounds are diminished right lower lobe. The findings and the impression was discussed with the patient. I attest to the documentation by the nurse practitioner. Time with Patient: Less than 30
[2018-04-08 12:09] VITALS: BP 111/65; TEMP 97.8
--- NOTE | 2018-04-08 15:05 | P.DS ---
Providers Date of admission: 04/01/18 00:01 Expected date of discharge: 04/08/18 Attending physician: Jono Moreno Consults: 04/01/18 01:06 Consult Physician Routine Consulting Provider: Pavel Valdivia Consult Reason/Comments: Pneumonia, Bilateral Pleural Effusions Do you want consulting provider notified?: Yes, Notify in am Primary care physician: Stated None Hospital Course: Final Diagnoses: Acute hypoxic respiratory failure secondary to chronic diastolic dysfunction with acute exacerbation . Echocardiogram reported moderate pulmonary hypertension, moderate aortic sclerosis, mild aortic stenosis, severely dilated left atrium, EF 60-65% -Moderate pulmonary hypertension, moderate aortic sclerosis -Right lower lobe mass or consolidation/pneumonia for which patient is receiving antibiotics, repeat CT was done. Patient is not a candidate for bronchoscopy. Conservative measures recommended per pulmonary. Ultrasound of the chest reported minimal effusion right greater than left, neither side marked. 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 Patient chest x-ray is suspicious for pulmonary edema because of which patient received Lasix. Patient is sitting in the chair is on about 2 L of oxygen now. Echocardiogram is being obtained. Patient is presently on Rocephin IV diuretics and azithromycin was on Avelox. Patient doesn't have any fevers. Does not appear to have had fevers at the the place either. Is complaining of cough without any significant sputum production. Patient is hard of hearing unable to get much of the history from the patient. Evaluated by pulmonary, maintained on nebulized bronchodilators, IV antibiotics. Significant clinical improvement. Cleared for discharge by pulmonary. Patient is being discharged to [facility] in a stable condition with guarded prognosis. Exam GENERAL: The patient is alert , pleasantly confused, not in any acute distress. Well developed, well nourished. HEENT: Pupils are round and equally reacting to light. EOMI. No scleral icterus. No conjunctival pallor. Normocephalic, atraumatic. No pharyngeal erythema. No thyromegaly. CARDIOVASCULAR: S1 and S2 present. No murmurs, rubs, or gallops. PULMONARY: Chest is clear to auscultation, no wheezing or crackles. Mildly decreased air entry into bilateral lung taylor. ABDOMEN: Soft, nontender, nondistended, normoactive bowel sounds. No palpable organomegaly. MUSCULOSKELETAL: No joint swelling or deformity. EXTREMITIES: No cyanosis, clubbing, or pedal edema. NEUROLOGICAL: Gross neurological examination did not reveal any focal deficits. The impression and plan of care has been dictated as directed. : I performed a history and examination of this patient, discussed the same with the dictator. I agree with the dictator's note ,documented as a scribe. Any additional findings or plans will be noted. Time taken: 35 minutes Patient Condition at Discharge: Stable Plan - Discharge Summary Discharge Rx Participant: No New Discharge Prescriptions: New Budesonide-Formot 160-4.5 Mcg [Symbicort 160-4.5 Mcg Inhaler] 2 puff INHALATION RT-BID puff Docusate [Colace] 100 mg PO DAILY PRN cap PRN Reason: Constipation Ipratropium-Albuterol Nebulize [Duoneb 0.5 mg-3 mg/3 ml Soln] 3 ml INHALATION RT-QID ampul.neb Ipratropium-Albuterol Nebulize [Duoneb 0.5 mg-3 mg/3 ml Soln] 3 ml INHALATION Q4H PRN ampul.neb PRN Reason: Shortness Of Breath Or Wheezing Levofloxacin [Levaquin] 750 mg PO DAILY #0 tab Continue Apixaban [Eliquis] 2.5 mg PO BID Aspirin [Adult Low Dose Aspirin EC] 81 mg PO DAILY Saliva Stimulant Agents Comb.3 [Biotene Moisturizing Mouth] 1 spray MUCOUS MEM DAILY Cetirizine HCl [Zyrtec] 10 mg PO DAILY Acetaminophen Tab [Tylenol] 650 mg PO Q6HR PRN PRN Reason: Pain Or Fever > 100.5 Sennosides-Docusate Sodium [Senokot-S] 1 tab PO BID Omeprazole 20 mg PO DAILY Fluticasone Nasal Archie [Flonase Nasal Archie] 1 spray EA NOSTRIL DAILY Ferrous Sulfate [Feosol] 325 mg PO BID Psyllium Husk (with Sugar) [Metamucil Powder] 3.4 gram PO DAILY Metoprolol Tartrate [Lopressor] 12.5 mg PO BID buPROPion HCL [Wellbutrin SR] 100 mg PO BID DULoxetine HCL [Cymbalta] 60 mg PO DAILY Bisacodyl [Dulcolax] 10 mg RECTAL DAILY PRN PRN Reason: Constipation Bisacodyl [Dulcolax] 5 mg PO DAILY guaiFENesin [guaiFENesin Oral Solution] 200 mg PO Q6HR PRN PRN Reason: Cough ALPRAZolam [Xanax] 0.25 mg PO TID #9 tab predniSONE 5 mg PO DAILY #0 Discontinued Albuterol Nebulized [Ventolin Nebulized] 3 ml INHALATION RT-QID Spironolactone [Aldactone] 25 mg PO DAILY Nystatin 100,000 unit PO DAILY predniSONE 5 mg PO DAILY Discharge Medication List Acetaminophen Tab [Tylenol] 650 mg PO Q6HR PRN 04/01/18 [History] Apixaban [Eliquis] 2.5 mg PO BID 04/01/18 [History] Aspirin [Adult Low Dose Aspirin EC] 81 mg PO DAILY 04/01/18 [History] Bisacodyl [Dulcolax] 5 mg PO DAILY 04/01/18 [History] Bisacodyl [Dulcolax] 10 mg RECTAL DAILY PRN 04/01/18 [History] Cetirizine HCl [Zyrtec] 10 mg PO DAILY 04/01/18 [History] DULoxetine HCL [Cymbalta] 60 mg PO DAILY 04/01/18 [History] Ferrous Sulfate [Feosol] 325 mg PO BID 04/01/18 [History] Fluticasone Nasal Archie [Flonase Nasal Archie] 1 spray EA NOSTRIL DAILY 04/01/18 [History] Metoprolol Tartrate [Lopressor] 12.5 mg PO BID 04/01/18 [History] Omeprazole 20 mg PO DAILY 04/01/18 [History] Psyllium Husk (with Sugar) [Metamucil Powder] 3.4 gram PO DAILY 04/01/18 [ History] Saliva Stimulant Agents Comb.3 [Biotene Moisturizing Mouth] 1 spray MUCOUS MEM DAILY 04/01/18 [History] Sennosides-Docusate Sodium [Senokot-S] 1 tab PO BID 04/01/18 [History] buPROPion HCL [Wellbutrin SR] 100 mg PO BID 04/01/18 [History] guaiFENesin [guaiFENesin Oral Solution] 200 mg PO Q6HR PRN 04/01/18 [History] ALPRAZolam [Xanax] 0.25 mg PO TID #9 tab 04/08/18 [Rx] Budesonide-Formot 160-4.5 Mcg [Symbicort 160-4.5 Mcg Inhaler] 2 puff INHALATION RT-BID puff 04/08/18 [Rx] Docusate [Colace] 100 mg PO DAILY PRN cap 04/08/18 [Rx] Ipratropium-Albuterol Nebulize [Duoneb 0.5 mg-3 mg/3 ml Soln] 3 ml INHALATION Q4H PRN ampul.neb 04/08/18 [Rx] Ipratropium-Albuterol Nebulize [Duoneb 0.5 mg-3 mg/3 ml Soln] 3 ml INHALATION RT -QID ampul.neb 04/08/18 [Rx] Levofloxacin [Levaquin] 750 mg PO DAILY #0 tab 04/08/18 [Rx] predniSONE 5 mg PO DAILY #0 04/08/18 [Rx] Follow up Appointment(s)/Referral(s): Ally Maier, [NON-STAFF] - As Needed Pavel Valdivia MD [STAFF PHYSICIAN] - 2 Weeks Activity/Diet/Wound Care/Special Instructions: Ally ECF Bumex on hold, r/t borderline hypotension 2 L nasal cannula O2 Diet: Cardiac Activity: As tolerated cbc,bmp in 3 days
--- NOTE | 2018-04-08 15:23 | P.PN ---
Subjective Progress Note Date: 04/07/18 Progress note being dictated for Dr. Moreno Interval history:Pneumonia 82-year-old pleasant gentleman, resident of [facility] was admitted to [facility] for pneumonia CT angios the chest was opted which showed bilateral centrilobular emphysema and mass like consolidation in the left lower lobe and a 2.5 cm pleural-based mass area. Patient chest x-ray is suspicious for pulmonary edema because of which patient received Lasix. Patient is sitting in the chair is on about 2 L of oxygen now. Echocardiogram is being obtained. Patient is presently on Rocephin IV diuretics and azithromycin was on Avelox. Patient doesn't have any fevers. Does not appear to have had fevers at the the place either. Is complaining of cough without any significant sputum production. Patient is hard of hearing unable to get much of the history from the patient. 04/02/2018 Patient denied any complains of chest pain. Shortness of breath is getting better. Patient is being continued on antibiotics in the form of ceftriaxone and azithromycin. Continue with IV diuresis and breathing treatments. Echocardiogram showed ejection fraction 60-65%. Severely dilated left atrium. And moderate aortic sclerosis and mild aortic stenosis. Moderate pulmonary hypertension. Patient is currently is being monitored in the ICU. No fever no chills. No other acute overnight issues. 04/05/2018 Patient is lying in the bed comfortably. Patient was confused this morning as well as to staff. No fever no chills. Tolerating diet. No nausea vomiting or abdominal pain. Patient is being continued on DuoNeb's and prednisone 5 mg daily. Continue with antibiotics in the form of ceftriaxone and azithromycin. Patient was diuresis will and they ICU. We'll continue to monitor closely due to confusion. 04/06/2018 Patient is sitting in the bed comfortably. Otherwise still confused but more awake and oriented today. Shortness of breath is stable. Being continued on antibiotics in the form of azithromycin and ceftriaxone. Continued on steroids. Otherwise patient is not a candidate for bronchoscopy and further evaluation of right lower lobe abnormality. Continue the current medical management and follow closely. Pulmonary is on board. Current medications reviewed.. 04/07/18 maintaining O2 sats in the mid 90s on 2 L nasal cannula. Denies chest pain, palpitations or increased shortness of breath. Afebrile. Ultrasound reporting small pleural effusions, not marked for thoracentesis. Objective - Vital Signs Vital signs: Vital Signs Temp 97.8 F 04/07/18 12:24 Pulse 94 04/07/18 19:27 Resp 22 04/07/18 12:40 BP 110/59 04/07/18 12:40 Pulse Ox 94 L 04/07/18 12:40 Intake & Output 04/07/18 04/07/18 04/08/18 06:59 18:59 06:59 Intake Total 640 Balance 640 Weight 101.5 kg Intake: Oral 640 Other: Voiding Method Urinal Urinal # Voids 1 2 - Exam GENERAL: The patient is alert but confused, not in any acute distress. Well developed, well nourished. HEENT: Pupils are round and equally reacting to light. EOMI. No scleral icterus. No conjunctival pallor. Normocephalic, atraumatic. No pharyngeal erythema. No thyromegaly. CARDIOVASCULAR: S1 and S2 present. No murmurs, rubs, or gallops. PULMONARY: Chest is clear to auscultation, no wheezing, fine rate basilar crackles. Mildly decreased air entry into bilateral lung taylor. ABDOMEN: Soft, nontender, nondistended, normoactive bowel sounds. No palpable organomegaly. MUSCULOSKELETAL: No joint swelling or deformity. EXTREMITIES: No cyanosis, clubbing, or pedal edema. NEUROLOGICAL: Gross neurological examination did not reveal any focal deficits. - Labs CBC & Chem 7: 04/06/18 07:15 04/06/18 07:15 Assessment and Plan Assessment: Acute hypoxic respiratory failure secondary to chronic diastolic dysfunction with acute exacerbation . Echocardiogram reported moderate pulmonary hypertension, moderate aortic sclerosis, mild aortic stenosis, severely dilated left atrium, EF 60-65% -Moderate pulmonary hypertension, moderate aortic sclerosis -Right lower lobe mass or consolidation/pneumonia for which patient is receiving antibiotics, repeat CT was done. Patient is not a candidate for bronchoscopy. Conservative measures recommended per pulmonary. Ultrasound of the chest reported minimal effusion right greater than left, neither side marked. 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 Maintain nebulized bronchodilators, IV antibiotics. Mild hypotension, continue holding Bumex, monitoring overnight. Discharge planning in progress for tomorrow for return back to [facility], pending pulmonary clearance. The impression and plan of care has been dictated as directed. : I performed a history and examination of this patient, discussed the same with the dictator. I agree with the dictator's note ,documented as a scribe. Any additional findings or plans will be noted.
[2018-04-08 16:34] VITALS: RESP 16
[2018-04-08 18:16] VITALS: PULSE 89
--- NOTE | 2018-04-10 09:25 | CDI ---
Last Revision, May 2017 Documentation Clarification Form Date: 04/10/18 From: Merna John Elicia Mock, Gas Burn[employer] Operator Hours-8:30 am & 5 pm MDevante Admit Date: 04/01/2018 12:01:00 AM Patient Name: Todd Gale Visit Number: [id number] Discharge Date: 04/08/18 ATTENTION: The Clinical Documentation Specialists (CDI) and [facility] Coding Staff appreciate your assistance in clarifying documentation. Please respond to the clarification below the line at the bottom and electronically sign. The CDI & [facility] Coding staff will review the response and follow-up if needed. Please note: Queries are made part of the Legal Health Record. If you have any questions, please contact the author of this message via ITS. Raul Ng MD History of peripheral vascular is documented in the consult and multiple PNs. History/Risk Factors: HTN, Ac/chr diastolic CHF, CKD stage 2, PNA, emphysema In your professional opinion, please specify type and location of of peripheral vascular disease? PVD ASPVD (include site & chronic condition) Other, please specify Unable to determine Please continue to document in your progress notes and discharge summary in order to capture severity of illness and risk of mortality. Include clinical findings that support your diagnosis. Peripheral vascular disease, unspecified MTDD
--- NOTE | 2018-04-10 17:10 | P.PN ---
Progress Note - Text Progress Note Date: 04/10/18 documentation of peripheral vessel disease was documented by Dr. cornejo. based on previous chart documentation but no clear-cut evidence of the site of the peripheral disease or the severity of the disease. Therefore The site of the peripheral vessel disease is unknown.
--- NOTE | 2018-04-12 17:59 | P.PN ---
Subjective Progress Note Date: 04/03/18 Principal diagnosis: Pneumonia 82-year-old pleasant gentleman, resident of [facility] was admitted to [facility] for pneumonia CT angios the chest was opted which showed bilateral centrilobular emphysema and mass like consolidation in the left lower lobe and a 2.5 cm pleural-based mass area. Patient chest x-ray is suspicious for pulmonary edema because of which patient received Lasix. Patient is sitting in the chair is on about 2 L of oxygen now. Echocardiogram is being obtained. Patient is presently on Rocephin IV diuretics and azithromycin was on Avelox. Patient doesn't have any fevers. Does not appear to have had fevers at the the place either. Is complaining of cough without any significant sputum production. Patient is hard of hearing unable to get much of the history from the patient. 04/02/2018 Patient denied any complains of chest pain. Shortness of breath is getting better. Patient is being continued on antibiotics in the form of ceftriaxone and azithromycin. Continue with IV diuresis and breathing treatments. Echocardiogram showed ejection fraction 60-65%. Severely dilated left atrium. And moderate aortic sclerosis and mild aortic stenosis. Moderate pulmonary hypertension. Patient is currently is being monitored in the ICU. No fever no chills. No other acute overnight issues. 04/03/2018 Patient seems to be more awake today. Continued on antibiotics in the form of ceftriaxone and azithromycin. She is to be clinically improving. CT of the chest showed COPD and small bilateral pleural effusion right more than left. There is bibasilar lung densities within the lingula in the right middle lobe and right lower lobe this could be potentially atelectatic lung segments although Abad Rodriguez cannot be excluded at this time. Denied any complaints of chest pain or worsening shortness of breath. No fever no chills. Lasix was discontinued. Patient is on long-term anticoagulation with eliquis. Current medications reviewed.. Objective - Vital Signs Vital signs: Vital Signs Temp 97.8 F 04/03/18 16:00 Pulse 85 04/03/18 19:40 Resp 19 04/03/18 17:00 BP 101/71 04/03/18 17:00 Pulse Ox 86 L 04/03/18 17:00 Intake & Output 04/03/18 04/03/18 04/04/18 06:59 18:59 06:59 Intake Total 80 800 Output Total 415 1150 Balance -335 -350 Intake: IV 80 .9 kvo 80 Intake, IV Titration 300 Amount Azithromycin 500 mg In 250 Sodium Chloride 0.9% 250 ml @ 250 mls/hr IVPB DAILY IMMANUEL Rx#:[id number] cefTRIAXone 1,000 mg In 50 Sodium Chloride 0.9% 50 ml @ 100 mls/hr IVPB Q24HR IMMANUEL Rx#:[id number] Oral 500 Output: Urine 415 1150 Other: Voiding Method Indwelling Catheter Indwelling Catheter # Bowel Movements 2 - Exam GENERAL: The patient is alert but confused, not in any acute distress. Well developed, well nourished. HEENT: Pupils are round and equally reacting to light. EOMI. No scleral icterus. No conjunctival pallor. Normocephalic, atraumatic. No pharyngeal erythema. No thyromegaly. CARDIOVASCULAR: S1 and S2 present. No murmurs, rubs, or gallops. PULMONARY: Chest is clear to auscultation, no wheezing or crackles. Mildly decreased air entry into bilateral lung taylor. ABDOMEN: Soft, nontender, nondistended, normoactive bowel sounds. No palpable organomegaly. MUSCULOSKELETAL: No joint swelling or deformity. EXTREMITIES: No cyanosis, clubbing, or pedal edema. NEUROLOGICAL: Gross neurological examination did not reveal any focal deficits. - Labs CBC & Chem 7: 04/06/18 07:15 04/06/18 07:15 Labs: Abnormal Lab Results - Last 24 Hours (Table) 04/03/18 04/03/18 Range/Units 07:07 07:07 RBC 4.12 L (4.30-5.90) m/uL Hgb 11.6 L (13.0-17.5) gm/dL Hct 36.8 L (39.0-53.0) % RDW 15.7 H (11.5-15.5) % Potassium 3.3 L (3.5-5.1) mmol/L Chloride 93 L (98-107) mmol/L Carbon Dioxide 40 H (22-30) mmol/L BUN 23 H (9-20) mg/dL Glucose 100 H (74-99) mg/dL Assessment and Plan Assessment: Acute hypoxic respiratory failure secondary to chronic diastolic dysfunction with acute exacerbation . Echocardiogram showed with a contraction 60-65% -Moderate pulmonary hypertension, mild aortic valve stenosis -Right lower lobe mass or consolidation/pneumonia for which patient is receiving antibiotics, repeat CT was done. Patient is not a candidate for bronchoscopy. 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 Continue with IV antibiotics.. Repeat CT showed masslike opacities in the lung bases bilaterally. Patient is not a candidate for further intervention. Continue the home medications including oral anticoagulation. Follow up closely and further recommendations based on the clinical course. Monitor renal function. Pulmonary is on board.
--- NOTE | 2018-04-12 18:00 | P.PN ---
Subjective Progress Note Date: 04/04/18 Principal diagnosis: Pneumonia 82-year-old pleasant gentleman, resident of [facility] was admitted to [facility] for pneumonia CT angios the chest was opted which showed bilateral centrilobular emphysema and mass like consolidation in the left lower lobe and a 2.5 cm pleural-based mass area. Patient chest x-ray is suspicious for pulmonary edema because of which patient received Lasix. Patient is sitting in the chair is on about 2 L of oxygen now. Echocardiogram is being obtained. Patient is presently on Rocephin IV diuretics and azithromycin was on Avelox. Patient doesn't have any fevers. Does not appear to have had fevers at the the place either. Is complaining of cough without any significant sputum production. Patient is hard of hearing unable to get much of the history from the patient. 04/02/2018 Patient denied any complains of chest pain. Shortness of breath is getting better. Patient is being continued on antibiotics in the form of ceftriaxone and azithromycin. Continue with IV diuresis and breathing treatments. Echocardiogram showed ejection fraction 60-65%. Severely dilated left atrium. And moderate aortic sclerosis and mild aortic stenosis. Moderate pulmonary hypertension. Patient is currently is being monitored in the ICU. No fever no chills. No other acute overnight issues. 04/03/2018 Patient seems to be more awake today. Continued on antibiotics in the form of ceftriaxone and azithromycin. She is to be clinically improving. CT of the chest showed COPD and small bilateral pleural effusion right more than left. There is bibasilar lung densities within the lingula in the right middle lobe and right lower lobe this could be potentially atelectatic lung segments although Abad Rodriguez cannot be excluded at this time. Denied any complaints of chest pain or worsening shortness of breath. No fever no chills. Lasix was discontinued. Patient is on long-term anticoagulation with eliquis. 04/04/2018 Patient able to sit in the chair. Shortness of breath seems to be improved compared to yesterday. Patient is on IV antibiotics and breathing treatments. No acute overnight issues. No nausea vomiting or abdominal pain. Tolerating oral diet. Patient is being transferred to medical floor. Current medications reviewed.. Objective - Vital Signs Vital signs: Vital Signs Temp 98.6 F 04/04/18 12:00 Pulse 82 04/04/18 20:14 Resp 16 04/04/18 20:14 BP 109/60 04/04/18 15:00 Pulse Ox 95 04/04/18 08:00 Intake & Output 04/04/18 04/04/18 04/05/18 06:59 18:59 06:59 Intake Total 875 1000 Output Total 1125 645 Balance -250 355 Weight 104.8 kg Intake: IV 60 .9 kvo 60 Oral 875 350 Tube Feeding 590 Output: Urine 1125 645 Other: Voiding Method Indwelling Catheter Indwelling Catheter - Exam GENERAL: The patient is alert but confused, not in any acute distress. Well developed, well nourished. HEENT: Pupils are round and equally reacting to light. EOMI. No scleral icterus. No conjunctival pallor. Normocephalic, atraumatic. No pharyngeal erythema. No thyromegaly. CARDIOVASCULAR: S1 and S2 present. No murmurs, rubs, or gallops. PULMONARY: Chest is clear to auscultation, no wheezing or crackles. Mildly decreased air entry into bilateral lung taylor. ABDOMEN: Soft, nontender, nondistended, normoactive bowel sounds. No palpable organomegaly. MUSCULOSKELETAL: No joint swelling or deformity. EXTREMITIES: No cyanosis, clubbing, or pedal edema. NEUROLOGICAL: Gross neurological examination did not reveal any focal deficits. - Labs CBC & Chem 7: 04/06/18 07:15 04/06/18 07:15 Labs: Abnormal Lab Results - Last 24 Hours (Table) 04/04/18 04/04/18 Range/Units 05:27 05:27 RBC 4.04 L (4.30-5.90) m/uL Hgb 11.0 L (13.0-17.5) gm/dL Hct 35.7 L (39.0-53.0) % MCHC 30.9 L (31.0-37.0) g/dL RDW 15.6 H (11.5-15.5) % Monocytes # 1.1 H (0-1.0) k/uL Potassium 3.2 L (3.5-5.1) mmol/L Chloride 90 L (98-107) mmol/L Carbon Dioxide 39 H (22-30) mmol/L BUN 21 H (9-20) mg/dL Glucose 104 H (74-99) mg/dL Assessment and Plan Assessment: Acute hypoxic respiratory failure secondary to chronic diastolic dysfunction with acute exacerbation . Echocardiogram showed with a contraction 60-65% -Moderate pulmonary hypertension, mild aortic valve stenosis -Right lower lobe mass or consolidation/pneumonia for which patient is receiving antibiotics, repeat CT was done. Patient is not a candidate for bronchoscopy. 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 Continue with IV antibiotics.. Repeat CT showed masslike opacities in the lung bases bilaterally. Patient is not a candidate for further intervention. Continue the home medications including oral anticoagulation. Follow up closely and further recommendations based on the clinical course. Monitor renal function. Pulmonary is on board.
== END 2018-04-08 18:10 | DRG 291 ==
LOC: 2SICU 04-01 00:01 → 3NMEDONC 04-04 18:45
PROVIDERS: ADMIT Hospitalist; ATTEND Hospitalist
DX: I13.0 Hypertensive heart and chronic kidney disease with heart failure and stage 1 through stage 4 chronic kidney disease, or unspecified chronic kidney disease (principal); I50.33 Acute on chronic diastolic (congestive) heart failure; J96.01 Acute respiratory failure with hypoxia; J18.9 Pneumonia, unspecified organism; J98.11 Atelectasis; G62.9 Polyneuropathy, unspecified; I27.20 Pulmonary hypertension, unspecified; I48.2 Chronic atrial fibrillation; D64.9 Anemia, unspecified; J43.2 Centrilobular emphysema; I35.0 Nonrheumatic aortic (valve) stenosis; F03.90 Unspecified dementia, unspecified severity, without behavioral disturbance, psychotic disturbance, mood disturbance, and anxiety; N18.2 Chronic kidney disease, stage 2 (mild); R91.1 Solitary pulmonary nodule; G47.30 Sleep apnea, unspecified; F32.9 Major depressive disorder, single episode, unspecified; F41.9 Anxiety disorder, unspecified; R26.9 Unspecified abnormalities of gait and mobility; H91.90 Unspecified hearing loss, unspecified ear; M19.91 Primary osteoarthritis, unspecified site; K21.9 Gastro-esophageal reflux disease without esophagitis; Z99.89 Dependence on other enabling machines and devices; Z79.01 Long term (current) use of anticoagulants; Z79.82 Long term (current) use of aspirin; Z79.52 Long term (current) use of systemic steroids; Z79.899 Other long term (current) drug therapy; Z88.2 Allergy status to sulfonamides; Z88.8 Allergy status to other drugs, medicaments and biological substances; I73.9 Peripheral vascular disease, unspecified
CPT/HCPCS: 71045; 71046; 71260; 76604; 80048; 81001; 83735; 83880; 84132; 84484; 85025; 93306; 94640; 94760